=== PATIENT | female | born 1965 | race Caucasian/White ===

== ENCOUNTER 2016-11-16 11:01 | Outpatient (CLI) | payer OTHER | END 2016-11-16 11:02 | disposition home or self-care (01) | DX: N60.01 Solitary cyst of right breast (principal) ==

== ENCOUNTER 2018-01-14 13:30 | Outpatient (CLI) | payer OTHER | END 2018-01-14 13:31 | disposition home or self-care (01) | LOC: LAB.R 13:30 | PROVIDERS: ATTEND Family Medicine | DX: L72.3 Sebaceous cyst (principal) | CPT/HCPCS: 87070; 87205 ==

== ENCOUNTER 2018-02-13 09:11 | Outpatient (CLI) | payer OTHER ==
--- NOTE | 2018-02-14 14:59 | Mammography Report ---
Procedure Date: 02/13/2018 Accession Number: [id number] / [id number] Procedure: MGN - Screening Mammo Dig Bilat CPT Code: FULL RESULT: EXAM: Screening Mammo Dig Bilat DATE: 02/13/2018 9:34 AM CLINICAL HISTORY: 52-year-old female reports a cyst in her right breast and significant weight loss of 85 pounds since her last mammogram mammogram. TECHNIQUE: Bilateral CC and MLO views were obtained. COMPARISON: 11/16/2016, 10/26/2015, 11/08/2014, 09/10/2013. FINDINGS: The breasts demonstrate scattered fibroglandular densities bilaterally. There is a well-circumscribed round hyperdense right breast mass, decreased in size compared to 2017 and compatible with the patient's preoperative cyst, typically benign. Typically benign coarse calcifications are seen in the right breast. Typically benign coarse calcifications are seen in the left breast. No suspicious masses, clustered microcalcifications, or regions of architectural distortion are identified. IMPRESSION: Benign findings RECOMMENDATION: Routine annual screening unless otherwise clinically indicated. BIRADS CATEGORY 2: Benign findings STANDARD QUALIFYING STATEMENTS: 1. This examination was reviewed with the aid of Computer-Aided Detection (CAD). 2. A negative or benign imaging report should not delay biopsy if clinically suspicious findings are present. Consider surgical consultation if warrented. More than 5% of cancers are not identified by imaging. 3. Dense breasts may obscure an underlying neoplasm.
== END 2018-02-13 09:12 | disposition home or self-care (01) ==
LOC: DI.N 09:11
PROVIDERS: ATTEND Family Medicine
DX: Z12.31 Encounter for screening mammogram for malignant neoplasm of breast (principal)
CPT/HCPCS: 77067

== ENCOUNTER 2019-03-09 10:46 | Outpatient (CLI) | payer BC ==
--- NOTE | 2019-03-09 11:46 | Mammography Report ---
Reason: SCREENING MAMMO Procedure Date: 03/09/2019 Accession Number: [id number] / [id number] Procedure: SIENA - Screening Mammo w/Tapan CPT Code: FULL RESULT: EXAM: Screening Mammo w/Tapan DATE: 03/09/2019 11:34 AM CLINICAL HISTORY: Routine screening. No reported personal or family history of breast cancer. TECHNIQUE: (B) - Bilateral CC and MLO views were obtained. COMPARISON: 02/13/2018 through 11/08/2014 PARENCHYMAL PATTERN: (A) - The breasts demonstrate scattered fibroglandular densities bilaterally. FINDINGS: Bilateral breasts: There are no suspicious masses, calcifications, or areas of distortion. IMPRESSION: Negative examination. BI-RADS category 1. RECOMMENDATION: (ANNUAL) - Recommend routine annual screening mammography. BI-RADS CATEGORY: (1) - Negative. STANDARD QUALIFYING STATEMENTS: 1. This examination was not reviewed with the aid of Computer-Aided Detection (CAD). 2. A negative or benign imaging report should not preclude biopsy if clinically suspicious findings are present. 3. Dense breasts may obscure an underlying neoplasm. 4. This examination was reviewed with the aid of 3D breast imaging (tomosynthesis).
== END 2019-03-09 10:47 | disposition home or self-care (01) ==
LOC: DI 10:46
DX: Z12.31 Encounter for screening mammogram for malignant neoplasm of breast (principal)
CPT/HCPCS: 77063; 77067

== ENCOUNTER 2019-05-19 21:01 | Emergency (ER) | payer BC ==
[2019-05-19 21:28] LABS: BASOPHILS % (AUTO) 0.5 %; EOSINOPHILS # (AUTO) 0.2 10^3/uL (0.0-0.7); EOSINOPHILS % (AUTO) 2.5 %; HGB - HEMOGLOBIN 12.3 g/dL (12.0-16.0); LYMPHOCYTES # (AUTO) 2.8 10^3/uL (1.5-3.5); LYMPHOCYTES % (AUTO) 46.5 %; MEAN CORPUSCULAR HEMOGLOBIN 28.3 pg (27.0-31.0); MEAN CORPUSCULAR HGB CONC 31.3 g/dL (32.0-36.0); MEAN CORPUSCULAR VOLUME 90.3 fL (81.0-99.0); MEAN PLATELET VOLUME 9.3 fL (7.9-10.8); MONOCYTES # (AUTO) 0.5 10^3/uL (0.0-1.0); MONOCYTES % (AUTO) 7.5 %; NEUTROPHILS # (AUTO) 2.6 10^3/uL (1.5-6.6); NEUTROPHILS % (AUTO) 42.7 %; PLT - PLATELET COUNT 288 10^3/uL (130-450); RED BLOOD COUNT 4.35 10^6/uL (4.20-5.40); RED CELL DISTRIBUTION WIDTH 12.6 % (12.0-15.0)
[2019-05-19] MEDS ORDERED: SODIUM CHLORIDE 0.9% 1,000 ML IV ONE (21:35)
[2019-05-19] MEDS ORDERED: LIDOCAINE VISCOUS 2% 15 ML UDC MM STA (21:35)
[2019-05-19] MEDS ORDERED: MAG HYDROX/AL HYDROX/SIMETH 30 ML UDC PO STA (21:35)
--- NOTE | 2019-05-19 21:35 | ED Physician Documentation ---
PD HPI ABD PAIN - Stated complaint Stated Complaint: ABD PX/NAUSEA - Chief complaint Chief Complaint: Abd Pain - History obtained from History obtained from: Patient - History of Present Illness Timing - onset: How many hours ago (2) Timing - duration: Hours (2) Timing - details: Abrupt onset Pain level now: 8 Quality: Cramping Location: RLQ, LLQ Associated symptoms: No: Fever, Nausea, Vomiting, Diarrhea, Constipation, Dysuria, Hematuria, Dizzy, Near syncope / syncope Similar symptoms before: No diagnosis Recently seen: Not recently seen - Additional information Additional information: Is a 53-year-old woman who presents with complaints that she is having intense cramping in her lower abdomen that started approximately 2 hours prior to presentation 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 She had eaten a meal replacement bar about 30 minutes prior at the onset of the symptoms with an artificial sweetener that has given her very similar symptoms as this in the past. She tried taking some Gas-X and Tums. She also drink some Sprite and that did not do anything to alleviate her symptoms. She has been belching and that seems to provide some relief but she has not had a bowel movement. There is of constant low level cramps but the pain is waxing and waning up to an 8 out of 10 at its most severe. She had a small salad and leftover crab cakes for lunch about 1230 and drink a smoothie for dinner. She has had prior gastric sleeve surgery about 4 years ago as well as cholecystectomy, hysterectomy and oophorectomy x1. She is not sure which side is remaining. She denies any nausea or vomiting although about a week and 1/2 to 2 weeks ago she was having quite a bit of vomiting and vomited 2 days ago as well. She related this to taking her Vitamins all at one time and she is started spacing them out. She denies fever. Review of Systems Constitutional: denies: Fever Nose: denies: Rhinorrhea / runny nose Throat: denies: Sore throat Cardiac: denies: Palpitations Respiratory: denies: Dyspnea, Cough GI: reports: Abdominal Pain. denies: Nausea, Vomiting, Diarrhea : denies: Dysuria, Frequency, Hematuria Musculoskeletal: denies: Back pain Neurologic: denies: Syncope PD PAST MEDICAL HISTORY - Allergies Allergies/Adverse Reactions: Allergies Allergy/AdvReac Type Severity Reaction Status Date / Time Penicillins Allergy Rash Verified 05/19/19 21:09 Sulfa (Sulfonamide Allergy Rash Verified 05/19/19 21:10 Antibiotics) PD ED PE NORMAL - Vitals Vital signs reviewed: Yes - General General: Alert and oriented X 3, No acute distress, Well developed/nourished, Other (She was standing up at the side of the bed leaning over it when I entered because of the pain.) - HEENT HEENT: Atraumatic, PERRL, Moist mucous membranes - Neck Neck: No adenopathy - Cardiac Cardiac: RRR, No murmur, Strong equal pulses - Respiratory Respiratory: No respiratory distress, Clear bilaterally - Abdomen Abdomen: Soft, Non tender, Other (Hypoactive bowel tones) - Derm Derm: Normal color, Warm and dry, No rash - Extremities Extremities: No edema - Neuro Neuro: Alert and oriented X 3, No motor deficit, No sensory deficit, Normal speech - Psych Psych: Normal mood, Normal affect Results - Vitals Vitals: Vital Signs - 24 hr 05/19/19 21:07 Temperature 36.8 C Heart Rate 74 Respiratory 18 Rate Blood Pressure 137/96 H O2 Saturation 98 Oxygen O2 Source Room air - Labs Labs: Laboratory Tests 05/19/19 05/19/19 05/19/19 21:19 21:19 21:55 WBC 6.0 RBC 4.35 Hgb 12.3 Hct 39.3 MCV 90.3 MCH 28.3 MCHC 31.3 L RDW 12.6 Plt Count 288 MPV 9.3 Neut # (Auto) 2.6 Lymph # (Auto) 2.8 [place] # (Auto) 0.5 Eos # (Auto) 0.2 Baso # (Auto) 0.0 Absolute Nucleated RBC 0.00 Nucleated RBC % 0.0 Sodium 142 Potassium 3.8 Chloride 104 Carbon Dioxide 30 Anion Gap 8.0 BUN 16 Creatinine 0.7 Estimated GFR (MDRD) 88 L Glucose 108 H Lactic Acid 0.7 Calcium 9.5 Total Bilirubin 0.8 AST 20 ALT 25 Alkaline Phosphatase 51 Total Protein 7.3 Albumin 4.6 Globulin 2.7 Albumin/Globulin Ratio 1.7 Lipase 36 Urine Color Urine Clarity Urine pH Ur Specific [place] Urine Protein Urine Glucose (UA) Urine Ketones Urine Occult Blood Urine Nitrite Urine Bilirubin Urine Urobilinogen Ur Leukocyte Esterase Ur Microscopic Review Urine Culture Comments 05/19/19 21:55 WBC RBC Hgb Hct MCV MCH MCHC RDW Plt Count MPV Neut # (Auto) Lymph # (Auto) [place] # (Auto) Eos # (Auto) Baso # (Auto) Absolute Nucleated RBC Nucleated RBC % Sodium Potassium Chloride Carbon Dioxide Anion Gap BUN Creatinine Estimated GFR (MDRD) Glucose Lactic Acid Calcium Total Bilirubin AST ALT Alkaline Phosphatase Total Protein Albumin Globulin Albumin/Globulin Ratio Lipase Urine Color YELLOW Urine Clarity CLEAR Urine pH 7.0 Ur Specific [place] <=1.005 Urine Protein NEGATIVE Urine Glucose (UA) NEGATIVE Urine Ketones NEGATIVE Urine Occult Blood NEGATIVE Urine Nitrite NEGATIVE Urine Bilirubin NEGATIVE Urine Urobilinogen 0.2 (NORMAL) Ur Leukocyte Esterase NEGATIVE Ur Microscopic Review NOT INDICATED Urine Culture Comments NOT INDICATED PD MEDICAL DECISION MAKING - ED course Complexity details: reviewed results, re-evaluated patient, d/w patient ED course: Labs are normal. Urinalysis is negative. She had a liter of saline and a GI cocktail with viscous lidocaine and Maalox as well as p.o. Bentyl. On reevaluation she said her pain was completely resolved. She has had this issue before with this artificial sweetener and knows to avoid it in the future to prevent these symptoms from recurring. She feels comfortable being discharged. Departure - Departure Disposition: 01 Home, Self Care Clinical Impression: Abdominal cramping Condition: Good Instructions: Abdominal Pain Follow-Up: Ramon Barbour DO [Primary Care Provider] - Comments: Avoid foods that contain the sweeteners that cause you to have pain. [place] diet for the next 12 to 24 hours.
[2019-05-19] MEDS ORDERED: DICYCLOMINE 10 MG CAPSULE PO STA (21:36)
[2019-05-19 21:58] LABS: ALBUMIN 4.6 g/dL (3.2-5.5); ALBUMIN/GLOBULIN RATIO 1.7 (1.0-2.2); BILIRUBIN,TOTAL 0.8 mg/dL (0.2-1.0); CALCIUM 9.5 mg/dL (8.5-10.3); CREATININE 0.7 mg/dL (0.4-1.0); TOTAL PROTEIN 7.3 g/dL (6.7-8.2)
[2019-05-19 22:49] LABS: BILIRUBIN,URINE NEGATIVE (NEGATIVE); GLUCOSE, URINE (UA) NEGATIVE (NEGATIVE); KETONES,URINE (UA) NEGATIVE (NEGATIVE); LEUKOCYTE ESTERASE, URINE NEGATIVE (NEGATIVE); NITRITE,URINE NEGATIVE (NEGATIVE); OCCULT BLOOD,URINE NEGATIVE (NEGATIVE); PROTEIN,URINE NEGATIVE (NEGATIVE); UROBILINOGEN,URINE 0.2 (NORMAL) E.U./dL (NORMAL)
[2019-05-19 22:53] LABS: CLARITY,URINE CLEAR (CLEAR)
[2019-05-19 23:09] VITALS: BP 132/68
== END 2019-05-19 23:11 | disposition home or self-care (01) ==
LOC: ED 21:01
DX: R10.31 Right lower quadrant pain (principal); R10.32 Left lower quadrant pain
CPT/HCPCS: 36415; 80053; 81003; 83605; 83690; 85025; 96360; 99282; 99284; A9270; 81001; 81025; 87086

== ENCOUNTER 2019-05-22 13:39 | Outpatient (CLI) | payer BC ==
[2019-05-22] MEDS ORDERED: IOVERSOL 320 50 ML VIAL ONE (13:55)
[2019-05-22] MEDS ORDERED: IOVERSOL 320 100 ML VIAL IVP ONE ×2 (13:55→14:41)
[2019-05-22] MEDS ORDERED: IOVERSOL 320 50 ML VIAL PO ONE (14:43)
--- NOTE | 2019-05-22 15:23 | CT Report ---
Reason: LLQ ABD PAIN Procedure Date: 05/22/2019 Accession Number: [id number] / [id number] Procedure: CT - Abdomen/Pelvis W CPT Code: Final Report FULL RESULT: EXAM: CT ABDOMEN AND PELVIS EXAM DATE: 05/22/2019 02:50 PM. CLINICAL HISTORY: LLQ ABD PAIN. COMPARISONS: None. TECHNIQUE: Routine helical CT imaging was performed through the abdomen and pelvis. IV contrast: OPTI 320 90ML. Enteric contrast: No. Reconstructions: Coronal and sagittal. In accordance with CT protocol optimization, one or more of the following dose reduction techniques were utilized for this exam: automated exposure control, adjustment of mA and/or KV based on patient size, or use of iterative reconstructive technique. FINDINGS: Lung Bases: Unremarkable. A small hiatal hernia noted.. Liver: Normal. No masses. Gallbladder/Bile Ducts: Status post cholecystectomy Spleen: Normal. Pancreas: Normal. Adrenal Glands: Normal. Kidneys: Subcentimeter hypodense lesion in superior pole of right kidney is too small to categorize. No masses or hydronephrosis. Peritoneal Cavity/Bowel: Normal. No free fluid, free air or adenopathy. No masses or acute inflammatory process. Appendix not visualized in right lower quadrant, however there is no inflammation. Few colonic diverticula in sigmoid colon however no diverticulitis. Pelvic Organs: Status post hysterectomy. The bladder and visualized pelvic organs are within normal limits. Vasculature: No aneurysms or other significant abnormality. Bones: No significant abnormality. Other: None. IMPRESSION: No acute abdominal pathology. Few colonic diverticula in sigmoid colon however no diverticulitis. Status post cholecystectomy. RADIA The call report notification system was initiated by Dr. Keyona Benjamin at 03:21 PM on 05/22/2019.
== END 2019-05-22 13:40 | disposition home or self-care (01) ==
LOC: DI 13:39
PROVIDERS: ATTEND Family Medicine
DX: K57.30 Diverticulosis of large intestine without perforation or abscess without bleeding (principal); Z90.49 Acquired absence of other specified parts of digestive tract; R10.32 Left lower quadrant pain
CPT/HCPCS: 74177

== ENCOUNTER 2019-07-11 09:27 | Inpatient (IN) | payer BC ==
[2019-07-11 10:01] LABS: BILIRUBIN,URINE NEGATIVE (NEGATIVE); GLUCOSE, URINE (UA) NEGATIVE (NEGATIVE); KETONES,URINE (UA) NEGATIVE (NEGATIVE); LEUKOCYTE ESTERASE, URINE NEGATIVE (NEGATIVE); NITRITE,URINE NEGATIVE (NEGATIVE); OCCULT BLOOD,URINE SMALL (NEGATIVE); PROTEIN,URINE NEGATIVE (NEGATIVE); UROBILINOGEN,URINE 0.2 (NORMAL) E.U./dL (NORMAL)
[2019-07-11 10:08] LABS: CLARITY,URINE CLEAR (CLEAR); RBC,URINE 0-5 /HPF (0-5); SQUAMOUS EPITHELIAL CELL,UR RARE Squamous (<= Few)
[2019-07-11 10:09] LABS: BACTERIA,URINE None Seen /HPF (None Seen)
[2019-07-11 10:10] LABS: HCG UR QUAL NEGATIVE
[2019-07-11 10:16] LABS: BASOPHILS % (AUTO) 0.2 %; EOSINOPHILS # (AUTO) 0.1 10^3/uL (0.0-0.7); EOSINOPHILS % (AUTO) 1.4 %; HGB - HEMOGLOBIN 13.3 g/dL (12.0-16.0); LYMPHOCYTES # (AUTO) 1.7 10^3/uL (1.5-3.5); LYMPHOCYTES % (AUTO) 29.3 %; MEAN CORPUSCULAR HEMOGLOBIN 29.5 pg (27.0-31.0); MEAN CORPUSCULAR HGB CONC 32.8 g/dL (32.0-36.0); MONOCYTES # (AUTO) 0.5 10^3/uL (0.0-1.0); MONOCYTES % (AUTO) 7.8 %; NEUTROPHILS # (AUTO) 3.5 10^3/uL (1.5-6.6); PLT - PLATELET COUNT 315 10^3/uL (130-450); RED BLOOD COUNT 4.51 10^6/uL (4.20-5.40); RED CELL DISTRIBUTION WIDTH 12.5 % (12.0-15.0); WHITE BLOOD COUNT 5.7 x10^3/uL (4.8-10.8)
[2019-07-11 10:24] LABS: ALBUMIN 4.5 g/dL (3.2-5.5); ALBUMIN/GLOBULIN RATIO 1.7 (1.0-2.2); BILIRUBIN,TOTAL 0.4 mg/dL (0.2-1.0); CALCIUM 9.1 mg/dL (8.5-10.3); CREATININE 0.7 mg/dL (0.4-1.0); TOTAL PROTEIN 7.1 g/dL (6.7-8.2)
[2019-07-11] MEDS ORDERED: ROCURONIUM 50 MG/5 ML VIAL IVP ONE (10:31)
[2019-07-11] MEDS ORDERED: KETOROLAC 30 MG/ML VIAL IVP ONE (10:31)
[2019-07-11] MEDS ORDERED: LIDOCAINE 2% 10 ML MDV SUBQ ONE (10:31)
[2019-07-11] MEDS ORDERED: DEXAMETHASONE 4 MG/ML VIAL IVP ONE (10:31)
[2019-07-11] MEDS ORDERED: GLYCOPYRROLATE 1 MG/5 ML VIAL IVP ONE (10:31)
[2019-07-11] MEDS ORDERED: ONDANSETRON 4 MG/2 ML VIAL IVP ONE (10:31)
[2019-07-11] MEDS ORDERED: PROPOFOL 200 MG/20 ML VIAL IVP ONE (10:31)
[2019-07-11] MEDS ORDERED: MIDAZOLAM 2 MG/2 ML VIAL IVP ONE (10:31)
[2019-07-11] MEDS ORDERED: NEOSTIGMINE 1 MG/1 ML 10 ML MDV IVP ONE (10:31)
[2019-07-11] MEDS ORDERED: MAG HYDROX/AL HYDROX/SIMETH 30 ML UDC PO STA ×2 (11:02→11:28)
[2019-07-11] MEDS ORDERED: LIDOCAINE VISCOUS 2% 15 ML UDC MM STA ×2 (11:02→11:28)
[2019-07-11] MEDS ORDERED: PANTOPRAZOLE 40 MG VIAL IVP STA (11:28)
[2019-07-11] MEDS ORDERED: SUCRALFATE 1 GM/10 ML UDC PO STA (11:28)
[2019-07-11] MEDS ORDERED: IOVERSOL 320 100 ML VIAL IVP ONE ×2 (11:33→12:10)
--- NOTE | 2019-07-11 12:42 | CT Report ---
Reason: epigastric pain vomiting no flatus Procedure Date: 07/11/2019 Accession Number: [id number] / [id number] Procedure: CT - Abdomen/Pelvis W CPT Code: Addended Final Report FULL RESULT: EXAM: CT ABDOMEN AND PELVIS EXAM DATE: 07/11/2019 12:08 PM. CLINICAL HISTORY: Epigastric pain. COMPARISONS: ABDOMEN/PELVIS W/ 05/22/2019 2:46 PM. TECHNIQUE: Routine helical CT imaging was performed through the abdomen and pelvis. IV contrast: 100 mL Optiray 320. Enteric contrast: No. Reconstructions: Coronal and sagittal. In accordance with CT protocol optimization, one or more of the following dose reduction techniques were utilized for this exam: automated exposure control, adjustment of mA and/or KV based on patient size, or use of iterative reconstructive technique. FINDINGS: Lung Bases: Mild hiatal hernia is seen. Liver: The liver demonstrates a few scattered tiny subcentimeter low-density foci, technically too small to further characterize and indeterminant but probable tiny cysts. Gallbladder/Bile Ducts: Cholecystectomy changes are seen. There is no biliary dilation. Spleen: Normal. Pancreas: Normal. Adrenal Glands: Normal. Kidneys: Simple 1.7 cm cyst in the upper pole is seen. There is no nephrolithiasis or hydronephrosis. Peritoneal Cavity/Bowel: There are postoperative changes related to the sleeve gastrectomy, grossly intact. The bowel loops demonstrate no appreciable dilation to suggest obstruction or ileus. There is unusual course of the transverse colon extending in a posterior peritoneal/retroperitoneal course (image 32/3 and image 36/6) suggesting potential internal hernia. There is mild fat stranding and edema associated with the bowel loops and mesentery. No pneumatosis. Minimal free fluid is seen in the mesentery. There is no free air. Pelvic Organs: Normal. The bladder and visualized pelvic organs are within normal limits. Vasculature: No aneurysms or other significant abnormality. Bones: No significant abnormality. Other: None. IMPRESSION: 1. Mild inflammatory changes and edema in the posterior mesentery with unusual course of the transverse colon seen in the posterior peritoneal/retroperitoneal space concerning for internal hernia. No dilated bowel loops to suggest obstruction at this time. Consider surgical consultation. 2. Status post sleeve gastrectomy with mild hiatal hernia. [facility] ADDENDUM: 07/11/19 16:[address] Davila. Normal lie of the transverse colon. Abnormal course of the distal small bowel and proximal colon with the cecum located in the anterior left upper quadrant there are associated areas of colon wall thickening and luminal narrowing with adjacent inflammatory fat stranding and trace fluid. Findings are suspicious for internal hernia.
--- NOTE | 2019-07-11 12:53 | ED Physician Documentation ---
PD HPI ABD PAIN - Stated complaint Stated Complaint: ABD PX - Chief complaint Chief Complaint: Abd Pain - History obtained from History obtained from: Patient, Family - History of Present Illness Timing - onset: Enter time (2300), Last night Timing - duration: Hours Timing - details: Abrupt onset, Still present, Waxing and waning Quality: Sharp, Pain Location: Epigastric Radiation: Upper back Improved by: Laying still, Vomiting Worsened by: Eating, Position, Palpation Associated symptoms: Nausea, Vomiting Similar symptoms before: Diagnosis (gastritis) Recently seen: Clinic - Additional information Additional information: 54-year-old female who is status post gastric sleeve has developed acute ep igastric abdominal pain radiating to her back. She is had this previously she has some improvement with a GI cocktail previously she is not on medications for acid reduction and she has had her gallbladder out previously. She is concerned today because she has not passed any flatus and she is worried about obstruction. She does indicate that she drinks 2 to 3 glasses of wine daily and she did take some ibuprofen yesterday morning. Review of Systems Constitutional: denies: Fever Eyes: denies: Decreased vision Ears: denies: Ear pain Nose: denies: Rhinorrhea / runny nose, Congestion Throat: denies: Sore throat Cardiac: denies: Chest pain / pressure, Palpitations Respiratory: denies: Dyspnea, Cough GI: reports: Abdominal Pain, Nausea, Vomiting : denies: Dysuria, Frequency Skin: denies: Rash Musculoskeletal: denies: Neck pain, Back pain, Extremity pain PD PAST MEDICAL HISTORY - Past Medical History Cardiovascular: None Respiratory: None Neuro: None Endocrine/Autoimmune: None GI: None [facility]: None : None HEENT: None Psych: None Musculoskeletal: None Derm: None - Past Surgical History Past Surgical History: No - Present Medications Home Medications: Ambulatory Orders Medication Instructions Recorded Confirmed Fluoxetine HCl 60 mg PO DAILY 07/11/19 07/11/19 - Allergies Allergies/Adverse Reactions: Allergies Allergy/AdvReac Type Severity Reaction Status Date / Time Penicillins Allergy Rash Verified 07/11/19 09:42 Sulfa (Sulfonamide Allergy Rash Verified 07/11/19 09:42 Antibiotics) - Social History Does the pt smoke?: No Smoking Status: Never smoker Does the pt drink ETOH?: No Does the pt have substance abuse?: No - Immunizations Immunizations are current?: Yes - POLST Patient has POLST: No PD ED PE NORMAL - Vitals Vital signs reviewed: Yes (hypertensive ) - General General: Well developed/nourished, Other (appears to be in pain with corruator tone and flat affect. 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, No motor deficit, No sensory deficit, Normal speech Eye Opening: Spontaneous Motor: Obeys Commands Verbal: Oriented GCS Score: 15 - Psych Psych: Normal mood, Other (flat affect) Results - Vitals Vitals: Vital Signs - 24 hr 07/11/19 07/11/19 07/11/19 09:37 11:25 14:52 Temperature 37.1 C 36.7 C 36.8 C Heart Rate 66 68 74 Respiratory 20 12 12 Rate Blood Pressure 134/86 H 138/92 H 135/72 H O2 Saturation 100 98 98 Oxygen O2 Source Room air - Labs Labs: Laboratory Tests 07/11/19 07/11/19 07/11/19 09:50 10:00 10:00 WBC 5.7 RBC 4.51 Hgb 13.3 Hct 40.6 MCV 90.0 MCH 29.5 MCHC 32.8 RDW 12.5 Plt Count 315 MPV 9.0 Neut # (Auto) 3.5 Lymph # (Auto) 1.7 [place] # (Auto) 0.5 Eos # (Auto) 0.1 Baso # (Auto) 0.0 Absolute Nucleated RBC 0.00 Nucleated RBC % 0.0 Sodium 141 Potassium 3.6 Chloride 102 Carbon Dioxide 29 Anion Gap 10.0 BUN 16 Creatinine 0.7 Estimated GFR (MDRD) 87 L Glucose 101 H Lactic Acid Calcium 9.1 Total Bilirubin 0.4 AST 17 ALT 19 Alkaline Phosphatase 50 Total Protein 7.1 Albumin 4.5 Globulin 2.6 Albumin/Globulin Ratio 1.7 Lipase 29 Urine Color YELLOW Urine Clarity CLEAR Urine pH 7.0 Ur Specific [place] 1.015 Urine Protein NEGATIVE Urine Glucose (UA) NEGATIVE Urine Ketones NEGATIVE Urine Occult Blood SMALL H Urine Nitrite NEGATIVE Urine Bilirubin NEGATIVE Urine Urobilinogen 0.2 (NORMAL) Ur Leukocyte Esterase NEGATIVE Urine RBC 0-5 Urine WBC 0-3 Ur Squamous Epith Cells RARE Squamous Urine Bacteria None Seen Ur Microscopic Review INDICATED Urine Culture Comments NOT INDICATED Urine HCG, Qual NEGATIVE 07/11/19 14:36 WBC RBC Hgb Hct MCV MCH MCHC RDW Plt Count MPV Neut # (Auto) Lymph # (Auto) [place] # (Auto) Eos # (Auto) Baso # (Auto) Absolute Nucleated RBC Nucleated RBC % Sodium Potassium Chloride Carbon Dioxide Anion Gap BUN Creatinine Estimated GFR (MDRD) Glucose Lactic Acid 0.6 Calcium Total Bilirubin AST ALT Alkaline Phosphatase Total Protein Albumin Globulin Albumin/Globulin Ratio Lipase Urine Color Urine Clarity Urine pH Ur Specific [place] Urine Protein Urine Glucose (UA) Urine Ketones Urine Occult Blood Urine Nitrite Urine Bilirubin Urine Urobilinogen Ur Leukocyte Esterase Urine RBC Urine WBC Ur Squamous Epith Cells Urine Bacteria Ur Microscopic Review Urine Culture Comments Urine HCG, Qual - Rads (name of study) CT ab/pel w Radiology: Prelim report reviewed (Impression: 1. Mild inflammatory changes and edema in the posterior mesentery with unusual course of the transverse colon seen in the posterior peritoneal/retroperitoneal space concerning for internal hernia. No dilated bowel loops to suggest obstruction at this time consider surgical consultation. 2. Status post sleeve gastrectomy with mild hiatal hernia), EMP read indepedently, See rad report PD MEDICAL DECISION MAKING - ED course Complexity details: reviewed old records, reviewed results, re-evaluated patient, considered differential, d/w patient, d/w family ED course: 54-year-old female status post gastric sleeve placement who has epigastric abdominal pain. My initial impression for this lady was gastritis as she is risk factors with both alcohol and ibuprofen. She was administered a GI cocktail with viscous lidocaine and Mylanta with equivocal results a second GI cocktail was administered with Carafate in addition and she is given a dose of Protonix. She had minimal relief with this and a CT scan of the abdomen pelvis was obtained which demonstrates a potential for internal hernia. In the mean time her symptoms have improved and she has passed some flatus. Despite this the patient's symptoms persist. Her imaging studies are concerning for an internal hernia and she has only had a gastric sleeve procedure. We consulted the [facility] excellence at [facility] and I spoke with Dr. Christy the public information relations manager bariatric surgeon who indicated that her surgical procedure should not be the cause of this problem and referred me back to general surgery. Dr. Davila is consulted again in the case and comes to the ED evaluates the patient and her images. There appears to be a rotation on the mesentery and the cecum is in the LUQ. The patient is taken to the OR and she is given a dose of cefotan 2gm IV prior to going to the OR. Departure - Departure Disposition: 66 [facility] DC/Xfer Clinical Impression: Internal hernia, Abdominal cramping Condition: Stable Discharge Date/Time: 07/11/19 16:48
[2019-07-11] MEDS ORDERED: HYDROmorphone 1 MG/ML CARPUJECT IVP STA (14:58)
[2019-07-11] MEDS ORDERED: ONDANSETRON 4 MG/2 ML VIAL IVP STA (14:58)
[2019-07-11] MEDS ORDERED: CEFOTETAN DISODIUM 2 GM in SODIUM CHLORIDE 0.9% MINIBAG 100 ML IV STA (16:33)
--- NOTE | 2019-07-11 16:51 | CONSULTATION NOTE ---
Referring Provider Name of Referring Provider:: Dr. Rasmussen Consult Date: 07/11/19 Chief Complaint - Chief Complaint Chief Complaint: abd pain History of Present Illness - Admitted From Admitted From:: ER - History Obtained From Records Reviewed: yes History obtained from: pt, family Exam Limitations: none - History of Present Illness HPI Comment/Other: 54 yo female with 1 yr hx of intermittent epigastric and LUQ pain, nausea and retching, described as constant, steady with colicky exacerbations, with increasing frequency and severity. Episodes can last hours to days, exacerbated by eating but not by activity. Current episode began yesterday afternoon and has persisted resulting in ER evaluation today. Previous ER evaluation in May was neg including a neg CT abd/pelvis. Pt is s/p laparoscopic gastric bypass in [place] in 2016 and has lost 80+ lbs since the surgery. She is also s/p cholecystectomy and LAVH for benign disease. No hx PUD, no fever, no melena or hematochezia. She reports increasing sx of constipation over the past few months. Evaluation today includes nl CBC, CMP, lipase, lactate, UA. CT abd/pelvis was interpreted as showing evidence of an internal hernia through which the cecum has become trapped in the LUQ. Consultation by Dr. Rasmussen with a surgeon at a bariatric center in the [place] area suggested that the gastric sleeve procedure was not likely to cause an internal hernia and recommended general surgical evaluation and treatment as appropriate. History - Past Medical History Cardiovascular: reports: None Respiratory: reports: None Neuro: reports: None Endocrine/Autoimmune: reports: None GI: reports: None COMMUNITY ENGAGEMENT COORDINATOR: reports: None : reports: None HEENT: reports: None Psych: reports: Depression, Anxiety Musculoskeletal: reports: None Derm: reports: None MRSA Hx?: No - Past Surgical History General: reports: Cholecystectomy, Gastric surgery (gastric sleeve 2017), Hiatal hernia repair /COMMUNITY ENGAGEMENT COORDINATOR: reports: Hysterectomy (lavh for benign dz with retention of one ovary) - Family & Social History Living arrangement: At home Living Situation: With spouse/s.o. - Substance History Use: Uses substance without health or social issues: Alcohol (3-4 glasses wine 3-4 times/week) - POLST Patient has POLST: No Meds/Allgy - Home Medications Home Medications: Ambulatory Orders Medication Instructions Recorded Confirmed Fluoxetine HCl 60 mg PO DAILY 07/11/19 07/11/19 - Allergies Allergies/Adverse Reactions: Allergies Allergy/AdvReac Type Severity Reaction Status Date / Time Penicillins Allergy Rash Verified 07/11/19 09:42 Sulfa (Sulfonamide Allergy Rash Verified 07/11/19 09:42 Antibiotics) Review of Systems - Constitutional Constitutional: reports: Weight loss. denies: Fever, Chills - Gastrointestinal Gastrointestinal: reports: Abdominal pain, Constipation, Nausea, Poor appetite. denies: Diarrhea, Change in bowel habits, Rectal bleeding, Black stools, Bloody stools, Vomiting, Coffee grounds emesis, Reflux/heartburn, Bloating - Psychiatric Psychiatric: reports: Depression, Anxiety - Hematologic/Lymphatic Hematologic/Lymphatic: denies: Blood clots, Bleeding tendencies - All Other Systems All Other Systems: reports: Reviewed and negative (or covered in HPI/PMH) Exam - Vital Signs Reviewed Vital Signs: Yes Vital Signs: Vital Signs x48h Temp Pulse Resp BP Pulse Ox 07/11/19 16:35 74 18 138/79 H 98 07/11/19 14:52 36.8 C 74 12 135/72 H 98 07/11/19 11:25 36.7 C 68 12 138/92 H 98 07/11/19 09:37 37.1 C 66 20 134/86 H 100 - Physical Exam General Appearance: positive: Alert, Moderate distress (c/o abd pain) Eyes Bilateral: positive: Normal inspection, No scleral icterus ENT: positive: ENT inspection nml, Pharynx nml, No signs of dehydration Neck: positive: Nml inspection, No JVD. negative: Lymphadenopathy (R), Lymphadenopathy (L) Respiratory: positive: Chest non-tender, No respiratory distress, Breath sounds nml Cardiovascular: positive: Regular rate & rhythm, No murmur, No gallop Abdomen: positive: Nml bowel sounds, No distention, Tenderness (epigastric and LUQ without peritoneal signs or masses). negative: Guarding, Rebound, Hepatomegaly, Splenomegaly, Mass Back: positive: Nml inspection. negative: CVA tenderness (R), CVA tenderness (L) Skin: positive: No rash, Warm, Dry. negative: Cyanosis Extremities: positive: Nml appearance, No pedal edema. negative: Calf tenderness Neurologic/Psychiatric: positive: Oriented x3 Conclusion/Plan - Diagnosis Diagnosis: Acute abdomen with evidence of an internal hernia displacing/trapping the cecum in LUQ. Cecal volvulus is thought to be less likely. No evidence of ischemia/infarction or complete bowel obstruction at this time. Unclear if this process is related to prior surgical procedures. - Plan Plan: Exploratory laparotomy with definitive treatment based on the operative finding s, which might require bowel resection and/or ostomy. PAR conference with pt, and daughter all present, in detail, was held, all questions were answered, and consent obtained. The procedure will be scheduled to be performed today as soon as it can be arranged. Thanks, - Lab Results Fish Bones: 07/11/19 10:00 07/11/19 10:00
--- NOTE | 2019-07-11 17:18 | ANESTHESIA ---
Pre-Anesthesia VS, & Labs - Diagnosis Diagnosis Acute abdomen with evidence of an internal hernia displacing/trapping the cecum in LUQ. Cecal volvulus is thought to be less likely. No evidence of ischemia/infarction or complete bowel obstruction at this time. Unclear if this process is related to prior surgical procedur es. - Procedure exploratory laparotomy Vital Signs: Temp Pulse Resp BP Pulse Ox 36.8 C 74 18 138/79 H 98 07/11/19 14:52 07/11/19 16:35 07/11/19 16:35 07/11/19 16:35 07/11/19 16:35 Height 5 ft 8 in Weight (kg) 83.915 kg Body Mass Index 28.1 - NPO >8 hours - Is Patient ?: No - Lab Results Current Lab Results: Laboratory Tests 07/11/19 14:36: Lactic Acid 0.6 07/11/19 10:00: Sodium 141, Potassium 3.6, Chloride 102, Carbon Dioxide 29, Anion Gap 10.0, BUN 16, Creatinine 0.7, Estimated GFR (MDRD) 87 L, Glucose 101 H , Calcium 9.1, Total Bilirubin 0.4, AST 17, ALT 19, Alkaline Phosphatase 50, Total Protein 7.1, Albumin 4.5, Globulin 2.6, Albumin/Globulin Ratio 1.7, Lipase 29 07/11/19 10:00: WBC 5.7, RBC 4.51, Hgb 13.3, Hct 40.6, MCV 90.0, MCH 29.5, MCHC 32.8, RDW 12.5, Plt Count 315, MPV 9.0, Neut # (Auto) 3.5, Lymph # (Auto) 1.7, [place] # (Auto) 0.5, Eos # (Auto) 0.1, Baso # (Auto) 0.0, Absolute Nucleated RBC 0.00, Nucleated RBC % 0.0 Lab results reviewed: Yes Fish Bones: 07/11/19 10:00 07/11/19 10:00 Home Medications and Allergies Home Medications: Ambulatory Orders Fluoxetine HCl 60 mg PO DAILY 07/11/19 Fluoxetine HCl 60 mg PO DAILY 07/11/19 Allergies/Adverse Reactions: Allergies Allergy/AdvReac Type Severity Reaction Status Date / Time Penicillins Allergy Rash Verified 07/11/19 09:42 Sulfa (Sulfonamide Allergy Rash Verified 07/11/19 09:42 Antibiotics) Anes History & Medical History - Anesthetic History Anesthesia Complications: reports: No previous complications Family history of Anesthesia Complications: Denies Family history of Malignant Hyperthermia: Denies - Medical History Cardiovascular: reports: None Pulmonary: reports: None Gastrointestinal: reports: None Urinary: reports: None Neuro: reports: None Musculoskeletal: reports: None Endocrine/Autoimmune: reports: None Blood Disorders: reports: None Skin: reports: None Smoking Status: Never smoker - Surgical History General: Cholecystectomy, Gastric surgery (gastric sleeve 2017), Hiatal hernia repair Gynecologic: Hysterectomy (lavh for benign dz with retention of one ovary) Exam General: Alert, Oriented x3, Cooperative Dental: WNL Mouth Openin Fingerbreadth Neck Mobility: Normal Mallampati classification: II Thyromental Distance: 4-6 cm Respiratory: Lungs clear, Normal breath sounds Cardiovascular: Regular rate Neurological: Normal speech Mental/Cognitive Status: Alert/Oriented X3, Normal for patient Cognitive Status: Within normal limits Plan Anesthesia Type: General Consent for Procedure(s) Verified and Reviewed: Yes Code Status: Attempt Resuscitation ASA classification: 2-Mild systemic disease Is this case an emergency?: Yes
[2019-07-11] MEDS ORDERED: LACTATED RINGERS 1,000 ML IV ONE ×4 (17:23→17:52)
[2019-07-11] MEDS ORDERED: BUPIVACAINE 0.5% PF 30 ML VIAL ONE (18:27)
--- NOTE | 2019-07-11 18:57 | OPERATIVE REPORT ---
Operative Report - General Admit Date: 07/11/19 Procedure Date: 07/11/19 Planned Procedure: Exploratory laparotomy, possible bowel resection, possible ostomy Pre-Op Diagnosis: Internal hernia, volvulus Procedure Performed: Exploratory laparotomy, lysis of adhesive bands, partial right colectomy with ileocolostomy/primary anastomosis Post Op Diagnosis: Internal hernia, cecal volvulus - Procedure Note Primary Surgeon: Ronaldo Davila MD [facility] Anesthesia Provider: Apollo Toth CRNA Anesthesia Technique: General ET tube Pathology: cecum and terminal ileum IV Fluids (mL): 1,000 Estimated Blood Loss (mL): 25 Urine Output (mL): 100 Indications: recurrent epigastric and LUQ pain, abd CT scan concerning for internal hernia or cecal volvulus Findings: solitary adhesive band across the base of a volvulized cecum located in the LUQ Complications: none
[2019-07-11] MEDS: HYDROmorphone 1 MG/ML CARPUJECT ONE ×3 (19:13→19:22)
[2019-07-11] MEDS ORDERED: SCOPOLAMINE PATCH TOP ONE (19:16)
[2019-07-11] MEDS: ONDANSETRON 4 MG/2 ML VIAL IVP PRN (19:16)
[2019-07-11] MEDS: HYDROmorphone 0.5 MG/0.5 ML SYRINGE IVP PRN (19:30)
[2019-07-11] MEDS: fentaNYL 100 MCG/2 ML VIAL ONE ×2 (19:37→19:40)
[2019-07-11] MEDS: LACTATED RINGERS 1,000 ML IV SCH (20:07)
[2019-07-11] MEDS: ACETAMINOPHEN 1,000 MG/100 ML 100 ML IV SCH (20:08)
[2019-07-12] MEDS ORDERED: SODIUM CHLORIDE 0.9% MINIBAG 100 ML IV ONE (01:30)
[2019-07-12] MEDS: KETOROLAC 15 MG/ML VIAL IVP SCH ×4 (01:38→18:16)
[2019-07-12] MEDS: ACETAMINOPHEN 1,000 MG/100 ML 100 ML IV SCH ×4 (01:41→20:50)
[2019-07-12] MEDS: HYDROmorphone 0.5 MG/0.5 ML SYRINGE IVP PRN ×2 (04:39→09:51)
--- NOTE | 2019-07-12 06:20 | OPERATIVE REPORT ---
DATE OF SERVICE: 07/11/2019 Physician: Ronaldo Davila MD PREOPERATIVE DIAGNOSIS: Acute abdomen due to internal hernia and/or cecal volvulus. POSTOPERATIVE DIAGNOSIS: Internal hernia with cecal volvulus. PROCEDURE PERFORMED: Exploratory laparotomy, lysis of adhesions and partial right colectomy with azra woodrow ileocolonic anastomosis. ANESTHESIA: General endotracheal by Apollo Toth CRNA SURGEON: Ronaldo Davila MD ESTIMATED BLOOD LOSS: 25 mL. COMPLICATIONS: None. FINDINGS: Exploration revealed a markedly redundant and volvulized cecum located in the left upper q uadrant, beneath the splenic flexure of the colon. The base of the volvulized loop was trapped by a very dense adhesive band. The cecum itself was markedly dilated and hyperemic along with the adjacen t terminal ileum, but was viable. The remainder of the colon had a normal appearance, although was f ull of hard stool throughout. The stomach had a normal postoperative state following gastric sleeve procedure. Adhesions were present in the right upper quadrant from prior cholecystectomy. The visua lized portion of the liver appeared normal. The small bowel was otherwise within normal limits. The ligament of Treitz was in its normal location. The sigmoid colon was mildly redundant. INDICATIONS: The patient is a 54-year-old woman with a one-year history of intermittent epigastric a nd left upper quadrant pain, nausea and retching of unclear etiology. She has a history of a gastric sleeve procedure 2-1/2 years ago, prior cholecystectomy and hysterectomy. Evaluation in the emergen cy room included CT scanning which showed evidence of what was thought to be an internal hernia with the cecum located in the left upper quadrant. The patient was advised to undergo exploratory laparot elise and definitive treatment based on operative findings, in an attempt to alleviate her symptoms and prevent complete bowel obstruction or infarction. TECHNIQUE: After informed consent, the patient was taken to the operating room where she was placed under general endotracheal anesthesia. Preoperative preparation included application of sequential c amaury compression boots and administration 2 grams of cefotetan intravenously within an hour of the inc ision. Her abdomen was prepared with ChloraPrep solution and draped in the usual sterile fashion. A n upper midline incision was used to enter the peritoneal cavity. Hemostasis achieved with electroca utery, the LigaSure, 3-0 silk sutures and 2-0 Vicryl ties. Incision was carried down through the lay ers of abdominal wall until the peritoneum was identified and entered sharply. The abdomen was explo red with findings noted above. The adhesive band at the base of the volvulized cecal loop was clampe d, cut, and ligated with 2-0 Vicryl ties. The abdominal contents were carefully explored. Findings were as noted above. The volvulized segment was seen to be viable, and felt that it was important to resect the segment to prevent recurrent symptoms. Therefore, points of bowel division were chosen, immediately proximal to the location of the adhesive band, and the bowel was mobilized and divided at both terminal ileum and ascending colon with a BAUTISTA-75 stapler with a GI load. The mesentery was div ided with the LigaSure, and the volvulized segment of terminal ileum and cecum were sent to Pathology . A primary anastomosis was performed using a staple technique, aligning the antimesenteric border o f the terminal ileum with that of the ascending colon adjacent to the stapled ends. Openings were cr eated in the antimesenteric borders of each, and one limb of the BAUTISTA-75 stapler was placed in each sonia men and aligned and closed to approximate the antimesenteric border of both loops of bowel and then f ired, creating a common channel, which was inspected and seen to be hemostatic. The resulting common defect was closed with a TA-60 stapler, which also provided hemostasis. The resulting mesenteric de fect was reapproximated with interrupted 3-0 silk sutures. After hemostasis was assured and the anas tomosis seemed to be patent, viable and watertight without tension. The anastomosis was returned to the abdominal cavity, which was then copiously irrigated with sterile saline. Gowns, gloves, instrum ents were then changed. A closing tray was then used to close the midline wound, which was closed in layers using a doubled 0 PDS suture in a continuous fashion to close the midline fascia, followed by continuous 3-0 Vicryl for subcutaneous tissues, followed by skin romulo and a dry sterile dressing. Also, 30 mL of 0.5% Marcaine plain was infiltrated into the incisions to assist in postoperative an algesia. Anesthesia was terminated and patient was transferred to the recovery room in satisfactory condition. Instrument counts were correct x2. No drains were used. cc: Ramon Barbour DO TD: 07/11/2019 19:19
[2019-07-12 06:23] LABS: BASOPHILS % (AUTO) 0.1 %; HGB - HEMOGLOBIN 10.8 g/dL (12.0-16.0); LYMPHOCYTES # (AUTO) 0.8 10^3/uL (1.5-3.5); LYMPHOCYTES % (AUTO) 7.9 %; MEAN CORPUSCULAR HEMOGLOBIN 28.1 pg (27.0-31.0); MEAN CORPUSCULAR HGB CONC 31.4 g/dL (32.0-36.0); MEAN CORPUSCULAR VOLUME 89.6 fL (81.0-99.0); MEAN PLATELET VOLUME 9.2 fL (7.9-10.8); MONOCYTES # (AUTO) 0.7 10^3/uL (0.0-1.0); MONOCYTES % (AUTO) 7.3 %; NEUTROPHILS # (AUTO) 8.5 10^3/uL (1.5-6.6); NEUTROPHILS % (AUTO) 84.1 %; PLT - PLATELET COUNT 235 10^3/uL (130-450); RED BLOOD COUNT 3.84 10^6/uL (4.20-5.40); RED CELL DISTRIBUTION WIDTH 12.2 % (12.0-15.0); WHITE BLOOD COUNT 10.1 x10^3/uL (4.8-10.8)
[2019-07-12 06:39] LABS: ALBUMIN 3.5 g/dL (3.2-5.5); ALBUMIN/GLOBULIN RATIO 1.5 (1.0-2.2); BILIRUBIN,TOTAL 0.5 mg/dL (0.2-1.0); CALCIUM 8.7 mg/dL (8.5-10.3); CREATININE 0.7 mg/dL (0.4-1.0); TOTAL PROTEIN 5.8 g/dL (6.7-8.2)
[2019-07-12] MEDS: LACTATED RINGERS 1,000 ML IV SCH ×2 (09:51→11:56)
[2019-07-12] MEDS: ENOXAPARIN 40 MG/0.4 ML SYRINGE SUBQ SCH (09:51)
[2019-07-12] MEDS ORDERED: POLYETHYLENE GLYCOL 3350 17 GM PACKET PO PRN (10:37)
--- NOTE | 2019-07-12 10:40 | PROVIDER PROGRESS NOTE ---
Subjective - General Admit Date: 07/11/19 Procedure Date: 07/11/19 Post Op Days: 1 Procedure Performed: partial right colectomy for cecal volvulus - Review of Systems Wound/Incisions: positive: Dressing dry and intact General: positive: No symptoms Pulmonary: positive: No symptoms Cardiovascular: positive: No symptoms Gastrointestinal: positive: Abdominal pain (moderate incisional pain) Musculoskeletal: positive: No symptoms Objective - Patient Data Reviewed Vital Signs: Yes Vital Signs: Vital Signs x48h Temp Pulse Resp BP Pulse Ox 07/12/19 08:20 36.9 C 70 16 115/56 L 98 07/12/19 04:35 37.2 C 88 16 117/63 97 Weight: Weight 07/10/19 07/11/19 07/12/19 23:59 23:59 23:59 Weight (kg) 83 kg 83 kg Intake & Output: Intake and Output Totals x24h 07/10/19 07/11/19 07/12/19 23:59 23:59 23:59 Intake Total 200 1440 Balance 200 1440 - Lab Results Lab Results: 07/12/19 05:43 07/12/19 05:43 Other Lab Results: Lab Results x24hrs 07/12/19 07/12/19 07/11/19 Range/Units 05:43 05:43 14:36 WBC 10.1 (4.8-10.8) x10^3/uL RBC 3.84 L (4.20-5.40) 10^6/uL Hgb 10.8 L (12.0-16.0) g/dL Hct 34.4 L (37.0-47.0) % MCV 89.6 (81.0-99.0) fL MCH 28.1 (27.0-31.0) pg MCHC 31.4 L (32.0-36.0) g/dL RDW 12.2 (12.0-15.0) % Plt Count 235 (130-450) 10^3/uL MPV 9.2 (7.9-10.8) fL Neut # (Auto) 8.5 H (1.5-6.6) 10^3/uL Lymph # (Auto) 0.8 L (1.5-3.5) 10^3/uL [place] # (Auto) 0.7 (0.0-1.0) 10^3/uL Eos # (Auto) 0.0 (0.0-0.7) 10^3/uL Baso # (Auto) 0.0 (0.0-0.1) 10^3/uL Absolute Nucleated RBC 0.00 x10^3/uL Nucleated RBC % 0.0 /100WBC Sodium 136 (135-145) mmol/L Potassium 3.7 (3.5-5.0) mmol/L Chloride 100 L (101-111) mmol/L Carbon Dioxide 29 (21-32) mmol/L Anion Gap 7.0 (6-13) BUN 14 (6-20) mg/dL Creatinine 0.7 (0.4-1.0) mg/dL Estimated GFR (MDRD) 87 L (>89) Glucose 148 H (70-100) mg/dL Lactic Acid 0.6 (0.5-2.2) mmol/L Calcium 8.7 (8.5-10.3) mg/dL Total Bilirubin 0.5 (0.2-1.0) mg/dL AST 21 (10-42) IU/L ALT 17 (10-60) IU/L Alkaline Phosphatase 39 L (42-121) IU/L Total Protein 5.8 L (6.7-8.2) g/dL Albumin 3.5 (3.2-5.5) g/dL Globulin 2.3 (2.1-4.2) g/dL Albumin/Globulin Ratio 1.5 (1.0-2.2) - Current Medications Current Medications: Current Medications Generic Name Dose Route Start Last Admin Trade Name Barrie PRN Reason Stop Dose Admin Enoxaparin Sodium 40 mg 07/12/19 09:00 07/12/19 09:51 Lovenox SUBQ 40 mg DAILY POLO Administration Acetaminophen 100 mls @ 400 mls/hr 07/11/19 19:00 07/12/19 08:07 Ofirmev IV Infused Q6H POLO Infusion Ondansetron HCl 4 mg 07/11/19 19:00 07/11/19 19:16 Zofran Inj IVP 4 mg Q6HR PRN Administration Nausea / Vomiting - Physical Exam Wound/Incisions: positive: Dressing dry and intact General Appearance: positive: Alert, Moderate distress (c/o incisional pain with activity) Eyes Bilateral: positive: Normal inspection, Conjunctivae nml, No scleral icterus ENT: positive: ENT inspection nml, Pharynx nml, No signs of dehydration Neck: positive: Nml inspection, No JVD Respiratory: positive: Chest non-tender, No respiratory distress, Breath sounds nml Cardiovascular: positive: Regular rate & rhythm, No murmur, No gallop Abdomen: positive: No distention, Tenderness (minimal expected postop tenderness), Other (dressing dry/intact) Skin: positive: Color nml, No rash, Warm, Dry. negative: Cyanosis Extremities: positive: No pedal edema. negative: Calf tenderness Neurologic/Psychiatric: positive: Oriented x3 ABX Reporting Has patient been on IV antibiotics over the past 48 hours?: No Impression/Plan - Problem List Problem List: PO Day 1 s/p partial right colectomy for cecal volvulus; Plan: OOB, activity and diet as efrain; adjust analgesics to optimize pain management; see orders.
[2019-07-12] MEDS: FAMOTIDINE 20 MG TABLET PO SCH ×2 (11:43→20:57)
[2019-07-12] MEDS ORDERED: BENZOCAINE/MENTHOL LOZENGE MM PRN (13:08)
[2019-07-12] MEDS: oxyCODONE 5 MG TABLET PO PRN ×2 (13:19→19:08)
--- NOTE | 2019-07-12 15:36 | ANESTHESIA POST OP EVALUATION ---
Anesthesia Post Eval - Post Anesthesia Eval CV Function Including HR & BP: positive: Stable Pain Control: positive: Adequate (Patient rated pain 2/10. States incisional pain is not bad, but has refered shoulder pain that is uncomfortable. She has been up walking without difficulty.) Nausea & Vomiting: positive: Negative Mental Status: positive: Appropriate Anesthesia Complications: positive: None
[2019-07-13] MEDS: KETOROLAC 15 MG/ML VIAL IVP SCH ×2 (01:00→05:38)
[2019-07-13] MEDS: oxyCODONE 5 MG TABLET PO PRN (01:30)
[2019-07-13] MEDS: ACETAMINOPHEN 1,000 MG/100 ML 100 ML IV SCH (03:01)
[2019-07-13] MEDS: LACTATED RINGERS 1,000 ML IV SCH (05:38)
[2019-07-13 05:39] LABS: BASOPHILS % (AUTO) 0.3 %; EOSINOPHILS # (AUTO) 0.1 10^3/uL (0.0-0.7); EOSINOPHILS % (AUTO) 1.8 %; HGB - HEMOGLOBIN 9.1 g/dL (12.0-16.0); LYMPHOCYTES # (AUTO) 2.1 10^3/uL (1.5-3.5); LYMPHOCYTES % (AUTO) 33.7 %; MEAN CORPUSCULAR HEMOGLOBIN 28.9 pg (27.0-31.0); MEAN CORPUSCULAR HGB CONC 31.8 g/dL (32.0-36.0); MEAN CORPUSCULAR VOLUME 90.8 fL (81.0-99.0); MEAN PLATELET VOLUME 9.3 fL (7.9-10.8); MONOCYTES # (AUTO) 0.5 10^3/uL (0.0-1.0); MONOCYTES % (AUTO) 8.3 %; NEUTROPHILS # (AUTO) 3.4 10^3/uL (1.5-6.6); NEUTROPHILS % (AUTO) 55.6 %; PLT - PLATELET COUNT 197 10^3/uL (130-450); RED BLOOD COUNT 3.15 10^6/uL (4.20-5.40); RED CELL DISTRIBUTION WIDTH 12.5 % (12.0-15.0); WHITE BLOOD COUNT 6.1 x10^3/uL (4.8-10.8)
[2019-07-13 05:52] LABS: ALBUMIN 3.2 g/dL (3.2-5.5); ALBUMIN/GLOBULIN RATIO 1.5 (1.0-2.2); BILIRUBIN,TOTAL 0.6 mg/dL (0.2-1.0); CREATININE 0.7 mg/dL (0.4-1.0); TOTAL PROTEIN 5.3 g/dL (6.7-8.2)
[2019-07-13] MEDS: ACETAMINOPHEN 325 MG TABLET PO SCH ×4 (08:23→20:59)
[2019-07-13] MEDS: POLYETHYLENE GLYCOL 3350 17 GM PACKET PO SCH ×2 (08:23→08:25)
[2019-07-13] MEDS: DOCUSATE SODIUM 250 MG CAPSULE PO SCH (08:24)
[2019-07-13] MEDS: ENOXAPARIN 40 MG/0.4 ML SYRINGE SUBQ SCH (08:24)
[2019-07-13] MEDS: FAMOTIDINE 20 MG TABLET PO SCH ×2 (08:24→20:52)
[2019-07-13] MEDS: IBUPROFEN 600 MG TABLET PO SCH ×3 (11:16→23:51)
--- NOTE | 2019-07-13 13:16 | PROVIDER PROGRESS NOTE ---
Subjective - General Admit Date: 07/11/19 Procedure Date: 07/11/19 Post Op Days: 2 Procedure Performed: partial right colectomy for cecal volvulus - Review of Systems Wound/Incisions: positive: Dressing dry and intact General: positive: No symptoms Pulmonary: positive: No symptoms Cardiovascular: positive: No symptoms Gastrointestinal: positive: Abdominal pain ( incisional pain improved) - Other Other Information/Narrative: efrain full liquid diet well; no flatus or stool; voiding well. Objective - Patient Data Reviewed Vital Signs: Yes Vital Signs: Vital Signs x48h Temp Pulse Resp BP Pulse Ox 07/13/19 09:00 36.6 C 72 16 117/62 100 Weight: Weight 07/11/19 07/12/19 07/13/19 23:59 23:59 23:59 Weight (kg) 83 kg 83 kg Intake & Output: Intake and Output Totals x24h 07/11/19 07/12/19 07/13/19 23:59 23:59 23:59 Intake Total 200 2816 3145 Balance 200 2816 3145 - Lab Results Lab Results: 07/13/19 05:10 07/13/19 05:10 Other Lab Results: Lab Results x24hrs 07/13/19 07/13/19 Range/Units 05:10 05:10 WBC 6.1 (4.8-10.8) x10^3/uL RBC 3.15 L (4.20-5.40) 10^6/uL Hgb 9.1 L (12.0-16.0) g/dL Hct 28.6 L (37.0-47.0) % MCV 90.8 (81.0-99.0) fL MCH 28.9 (27.0-31.0) pg MCHC 31.8 L (32.0-36.0) g/dL RDW 12.5 (12.0-15.0) % Plt Count 197 (130-450) 10^3/uL MPV 9.3 (7.9-10.8) fL Neut # (Auto) 3.4 (1.5-6.6) 10^3/uL Lymph # (Auto) 2.1 (1.5-3.5) 10^3/uL [place] # (Auto) 0.5 (0.0-1.0) 10^3/uL Eos # (Auto) 0.1 (0.0-0.7) 10^3/uL Baso # (Auto) 0.0 (0.0-0.1) 10^3/uL Absolute Nucleated RBC 0.00 x10^3/uL Nucleated RBC % 0.0 /100WBC Sodium 134 L (135-145) mmol/L Potassium 3.8 (3.5-5.0) mmol/L Chloride 99 L (101-111) mmol/L Carbon Dioxide 30 (21-32) mmol/L Anion Gap 5.0 L (6-13) BUN 9 (6-20) mg/dL Creatinine 0.7 (0.4-1.0) mg/dL Estimated GFR (MDRD) 87 L (>89) Glucose 92 (70-100) mg/dL Calcium 8.0 L (8.5-10.3) mg/dL Total Bilirubin 0.6 (0.2-1.0) mg/dL AST 28 (10-42) IU/L ALT 24 (10-60) IU/L Alkaline Phosphatase 35 L (42-121) IU/L Total Protein 5.3 L (6.7-8.2) g/dL Albumin 3.2 (3.2-5.5) g/dL Globulin 2.1 (2.1-4.2) g/dL Albumin/Globulin Ratio 1.5 (1.0-2.2) - Current Medications Current Medications: Current Medications Generic Name Dose Route Start Last Admin Trade Name Geraldq PRN Reason Stop Dose Admin Acetaminophen 650 mg 07/13/19 09:00 07/13/19 08:23 Tylenol PO 650 mg Q4HR POLO Administration Docusate Sodium 250 - 500 mg 07/13/19 09:00 07/13/19 08:24 Colace 250mg Capsule PO 250 mg DAILY POLO Administration Enoxaparin Sodium 40 mg 07/12/19 09:00 07/13/19 08:24 Lovenox SUBQ 40 mg DAILY POLO Administration Famotidine 20 mg 07/12/19 11:00 07/13/19 08:24 Pepcid PO 20 mg BID POLO Administration Ibuprofen 600 mg 07/13/19 12:00 07/13/19 11:16 Motrin PO 600 mg Q6HR POLO Administration Ondansetron HCl 4 mg 07/11/19 19:00 07/11/19 19:16 Zofran Inj IVP 4 mg Q6HR PRN Administration Nausea / Vomiting Oxycodone HCl 5 mg 07/12/19 10:37 07/13/19 01:30 Roxicodone PO 5 mg Q4HR PRN Administration PAIN Polyethylene Glycol 17 gm 07/13/19 07:00 07/13/19 08:25 Miralax PO Not Given DAILY POLO Throat Lozenges 1 lozenge 07/12/19 13:08 07/12/19 13:19 Cepacol MM 1 lozenge Q2HR PRN Administration Throat pain - Physical Exam Wound/Incisions: positive: Dressing dry and intact, No drainage General Appearance: positive: No acute distress, Alert Eyes Bilateral: positive: No scleral icterus ENT: positive: Pharynx nml, No signs of dehydration Neck: positive: No JVD Respiratory: positive: Chest non-tender, No respiratory distress, Breath sounds nml Cardiovascular: positive: Regular rate & rhythm, No murmur, No gallop Abdomen: positive: No distention, Tenderness (minimal shruti incisional) Skin: positive: Color nml, No rash, Warm, Dry Extremities: positive: No pedal edema. negative: Calf tenderness Neurologic/Psychiatric: positive: Oriented x3 ABX Reporting Has patient been on IV antibiotics over the past 48 hours?: No Impression/Plan - Problem List Problem List: Doing well PO Day 2 s/p partial right colectomy for cecal volvulus Plan: advance diet and activity as efrain; po meds; home tomorrow if continues to improve.
[2019-07-13] MEDS: ONDANSETRON 4 MG/2 ML VIAL IVP PRN (17:18)
[2019-07-14] MEDS: ACETAMINOPHEN 325 MG TABLET PO SCH ×3 (01:20→08:08)
[2019-07-14 05:40] LABS: BASOPHILS % (AUTO) 0.4 %; EOSINOPHILS # (AUTO) 0.2 10^3/uL (0.0-0.7); EOSINOPHILS % (AUTO) 3.3 %; HGB - HEMOGLOBIN 9.3 g/dL (12.0-16.0); LYMPHOCYTES # (AUTO) 1.3 10^3/uL (1.5-3.5); LYMPHOCYTES % (AUTO) 24.2 %; MEAN CORPUSCULAR HGB CONC 31.6 g/dL (32.0-36.0); MEAN CORPUSCULAR VOLUME 91.6 fL (81.0-99.0); MEAN PLATELET VOLUME 9.7 fL (7.9-10.8); MONOCYTES # (AUTO) 0.5 10^3/uL (0.0-1.0); MONOCYTES % (AUTO) 9.9 %; NEUTROPHILS # (AUTO) 3.4 10^3/uL (1.5-6.6); NEUTROPHILS % (AUTO) 61.8 %; PLT - PLATELET COUNT 212 10^3/uL (130-450); RED BLOOD COUNT 3.21 10^6/uL (4.20-5.40); RED CELL DISTRIBUTION WIDTH 12.6 % (12.0-15.0); WHITE BLOOD COUNT 5.5 x10^3/uL (4.8-10.8)
[2019-07-14] MEDS: IBUPROFEN 600 MG TABLET PO SCH (05:40)
[2019-07-14 07:42] VITALS: BP 123/70
--- NOTE | 2019-07-14 07:44 | Discharge Plan ---
Discharge Plan Problem Reviewed?: Yes Disposition: Home, Self Care Condition: Good Diet: Regular (no raw veggies or nuts) Activity Restrictions: ambulation daily; no lifting more than 10 lbs for 2 weeks Shower Restrictions: Yes Driving Restrictions: Yes (no driving for 1 week) Weight Bearing: Full Weight Additional Instructions or Follow Up instructions: Follow up with Dr. Davila in 1 week. Call [phone] for an appointment. No Smoking: If you smoke, Please STOP! Call for help. Follow-up with: Ramon Barbour DO [Primary Care Provider] -
--- NOTE | 2019-07-14 07:47 | DISCHARGE SUMMARY ---
"Discharge Summary Admit Date: 07/11/19 Discharge Date: 07/14/19 Discharging Provider: Dr. Ronaldo Davila Primary Care Provider: Dr. 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 lysis of adhesive band, partial right colectomy with primary anastomosis. - HOSPITAL COURSE Hospital Course: Pt was taken to the OR on the day of admission where the above mentioned procedures were carried out without operative complications. Post operative course was uncomplicated and by the 3rd postoperative day pt was afebrile, with stable vs, tolerating a regular diet, ambulating, voiding well and moving her bowels without difficulty. Pain was well controlled with non narcotic analgesics. - ALLERGIES Allergies/Adverse Reactions: Allergies Allergy/AdvReac Type Severity Reaction Status Date / Time Penicillins Allergy Rash Verified 07/11/19 09:42 Sulfa (Sulfonamide Allergy Rash Verified 07/11/19 09:42 Antibiotics) - MEDICATIONS Home Medications: Ambulatory Orders Medication Instructions Recorded Confirmed Fluoxetine HCl 60 mg PO DAILY 07/11/19 07/11/19 Acetaminophen 650 mg PO Q6H PRN #30 tablet 07/14/19 Ibuprofen [Motrin] 600 mg PO Q6HR tablet 07/14/19 Polyethylene Glycol 3350 [Miralax] 17 gm PO DAILY packet 07/14/19 Home Medications Other | Comments: Iburprofen 600 mg every 6 hours as needed for pain acetaminophen 650 mg every 6 hours as needed for pain Miralax 17 g daily as needed for constipation - PHYSICAL EXAM AT DISCHARGE General Appearance: positive: No acute distress, Alert Eyes Bilateral: positive: Normal inspection, No scleral icterus ENT: positive: ENT inspection nml, Pharynx nml, No signs of dehydration Neck: positive: No JVD Respiratory: positive: Chest non-tender, No respiratory distress, Breath sounds nml Cardiovascular: positive: Regular rate & rhythm, No murmur, No gallop Abdomen: positive: Non-tender, No distention, Other (dressing dry/intact) Skin: positive: Color nml, No rash, Warm, Dry. negative: Cyanosis Extremities: positive: No pedal edema. negative: Calf tenderness Neurologic/Psychiatric: positive: Oriented x3 - LABS Result Diagrams: 07/14/19 05:21 07/13/19 05:10 - FOLLOW UP Follow Up: Dr. Davila and Dr. Barbour in 1 week. - TIME SPENT Time Spent in Discharge (Minutes): 30"
[2019-07-14] MEDS: ENOXAPARIN 40 MG/0.4 ML SYRINGE SUBQ SCH (08:07)
[2019-07-14] MEDS: POLYETHYLENE GLYCOL 3350 17 GM PACKET PO SCH (08:08)
[2019-07-14] MEDS: DOCUSATE SODIUM 250 MG CAPSULE PO SCH (08:08)
[2019-07-14] MEDS: FAMOTIDINE 20 MG TABLET PO SCH (08:09)
== END 2019-07-14 08:55 | disposition home or self-care (01) | DRG 331 ==
LOC: ED 09:27 → MS2 16:30 → ED 16:48
PROVIDERS: ADMIT Internal Medicine Gastroenterology; ATTEND Internal Medicine Gastroenterology
PROC: 0DTH0ZZ Resection of Cecum, Open Approach (ICD-10-PCS; principal; 2019-07-11 17:00)
DX: K56.2 Volvulus (principal); K46.9 Unspecified abdominal hernia without obstruction or gangrene; K66.0 Peritoneal adhesions (postprocedural) (postinfection); K44.9 Diaphragmatic hernia without obstruction or gangrene; F32.9 Major depressive disorder, single episode, unspecified; F41.9 Anxiety disorder, unspecified; Z98.84 Bariatric surgery status; Z90.49 Acquired absence of other specified parts of digestive tract; Z90.710 Acquired absence of both cervix and uterus; Z90.721 Acquired absence of ovaries, unilateral; Z79.899 Other long term (current) drug therapy; Z72.89 Other problems related to lifestyle; Z79.1 Long term (current) use of non-steroidal anti-inflammatories (NSAID)
CPT/HCPCS: 36415; 74177; 80053; 81001; 81003; 81025; 83605; 83690; 85025; 87086; 96374; 96375; 99284

== ENCOUNTER 2019-09-29 08:00 | Outpatient (CLI) | payer BC ==
[2019-09-29 12:39] LABS: BASOPHILS % (AUTO) 0.9 %; EOSINOPHILS # (AUTO) 0.4 10^3/uL (0.0-0.7); EOSINOPHILS % (AUTO) 8.7 %; HGB - HEMOGLOBIN 12.4 g/dL (12.0-16.0); LYMPHOCYTES # (AUTO) 1.5 10^3/uL (1.5-3.5); LYMPHOCYTES % (AUTO) 33.2 %; MEAN CORPUSCULAR HEMOGLOBIN 29.1 pg (27.0-31.0); MEAN CORPUSCULAR VOLUME 91.1 fL (81.0-99.0); MEAN PLATELET VOLUME 9.7 fL (7.9-10.8); MONOCYTES # (AUTO) 0.4 10^3/uL (0.0-1.0); MONOCYTES % (AUTO) 8.9 %; NEUTROPHILS # (AUTO) 2.2 10^3/uL (1.5-6.6); NEUTROPHILS % (AUTO) 47.9 %; PLT - PLATELET COUNT 266 10^3/uL (130-450); RED BLOOD COUNT 4.26 10^6/uL (4.20-5.40); RED CELL DISTRIBUTION WIDTH 12.7 % (12.0-15.0); WHITE BLOOD COUNT 4.5 x10^3/uL (4.8-10.8)
[2019-09-29 13:03] LABS: % IRON SATURATION 20 % (20-50); ALBUMIN 4.1 g/dL (3.2-5.5); ALBUMIN/GLOBULIN RATIO 1.6 (1.0-2.2); ALKALINE PHOSPHATASE 45 IU/L (42-121); ALT ALANINE AMINOTRANSFERASE 20 IU/L (10-60); AST ASPARTATE AMINOTRANSFERASE 18 IU/L (10-42); BILIRUBIN,TOTAL 0.7 mg/dL (0.2-1.0); BUN - BLOOD UREA NITROGEN 23 mg/dL (6-20); CALCIUM 9.3 mg/dL (8.5-10.3); CARBON DIOXIDE - CO2 28 mmol/L (21-32); CHLORIDE 101 mmol/L (101-111); CK- CREATINE KINASE 50 IU/L (22-269); CREATININE 0.8 mg/dL (0.4-1.0); GFR - MDRD 75 (>89); GLUCOSE 86 mg/dL (70-100); IRON 74 ug/dL (28-170); SODIUM 138 mmol/L (135-145); TOTAL IRON BINDING CAPACITY 377 ug/dL (250-450); TOTAL PROTEIN 6.7 g/dL (6.7-8.2); TRANSFERRIN 269 mg/dL (192-382)
[2019-09-29 13:10] LABS: CRP - C-REACTIVE PROTEIN < 1.0 mg/dL (0-1.0)
[2019-09-29 13:11] LABS: FERRITIN 40.6 ng/mL (11.0-306.8)
[2019-09-29 13:19] LABS: MAGNESIUM 2.1 mg/dL (1.7-2.8)
== END 2019-09-29 23:59 | disposition home or self-care (01) ==
LOC: LAB.WCP 08:00
PROVIDERS: ATTEND Family Medicine
DX: M60.9 Myositis, unspecified (principal); Z98.84 Bariatric surgery status
CPT/HCPCS: 36415; 80053; 82550; 82607; 82728; 83540; 83735; 83921; 84466; 84630; 85025; 85651; 86140

== ENCOUNTER 2019-10-15 14:02 | Outpatient (CLI) | payer BC | END 2019-10-15 14:03 | disposition home or self-care (01) | LOC: COV 14:02 | PROVIDERS: ATTEND Family Medicine | DX: R05 Cough (principal) ==

== ENCOUNTER 2020-02-12 13:37 | Outpatient (CLI) | payer BC | END 2020-02-12 13:38 | disposition home or self-care (01) | LOC: LAB 13:37 | PROVIDERS: ATTEND Surgery | DX: Z01.812 Encounter for preprocedural laboratory examination (principal); K43.9 Ventral hernia without obstruction or gangrene; Z20.828 Contact with and (suspected) exposure to other viral communicable diseases ==

== ENCOUNTER 2020-02-15 06:55 | Day surgery (SDC) | payer BC ==
[2020-02-15] MEDS ORDERED: DEXAMETHASONE 4 MG/ML VIAL IVP ONE (06:56)
[2020-02-15] MEDS ORDERED: LIDOCAINE-MPF 2% 5 ML VIAL IM ONE (06:56)
[2020-02-15] MEDS ORDERED: fentaNYL 100 MCG/2 ML VIAL IVP ONE (06:56)
[2020-02-15] MEDS ORDERED: PROPOFOL 200 MG/20 ML VIAL IVP ONE (06:56)
[2020-02-15] MEDS ORDERED: LACTATED RINGERS 1,000 ML IV ONE (07:02)
[2020-02-15] MEDS ORDERED: BUPIVACAINE 0.5% PF 30 ML VIAL ONE (07:15)
[2020-02-15] MEDS ORDERED: LIDOCAINE 1%-EPI 1:100000 20 ML MDV ONE (07:15)
--- NOTE | 2020-02-15 07:22 | ANESTHESIA ---
Pre-Anesthesia VS, & Labs - Diagnosis incisional hernia - Procedure incisional hernia repair Vital Signs: Temp Pulse Resp BP Pulse Ox 36.1 C L 74 18 117/69 99 02/15/20 07:14 02/15/20 07:14 02/15/20 07:14 02/15/20 07:14 02/15/20 07:14 Height 5 ft 8 in Weight (kg) 89.7 kg Body Mass Index 27.8 - NPO >8 hours - Is Patient ?: No - Lab Results Lab results reviewed: Yes Home Medications and Allergies Home Medications: Ambulatory Orders Cetirizine [ZyrTEC] 10 mg PO DAILY 02/08/20 Fluoxetine HCl 60 mg PO DAILY 07/11/19 Cetirizine [ZyrTEC] 10 mg PO DAILY 02/08/20 Allergies/Adverse Reactions: Allergies Allergy/AdvReac Type Severity Reaction Status Date / Time Penicillins Allergy Rash Verified 07/11/19 09:42 Sulfa (Sulfonamide Allergy Hives Verified 02/08/20 11:42 Antibiotics) Anes History & Medical History - Anesthetic History Anesthesia Complications: reports: No previous complications Family history of Anesthesia Complications: Denies Family history of Malignant Hyperthermia: Denies - Medical History Cardiovascular: reports: High cholesterol Pulmonary: reports: None Gastrointestinal: reports: Hiatal hernia, Other Urinary: reports: None Neuro: reports: None (had a one time seizure(patient states from taking wellbutrin in past, none since)) Musculoskeletal: reports: None Endocrine/Autoimmune: reports: None Blood Disorders: reports: None Skin: reports: None Smoking Status: Never smoker - Surgical History General: Cholecystectomy, Bowel surgery, Gastric surgery, Hiatal hernia repair Gynecologic: Hysterectomy, Oophrectomy Exam General: Alert, Oriented x3, Cooperative, No acute distress Mouth Openin Fingerbreadth Neck Mobility: Normal Mallampati classification: II Respiratory: Lungs clear, Normal breath sounds, No respiratory distress, No accessory muscle use Cardiovascular: Regular rate, Normal S1, Normal S2, No murmurs Plan Anesthesia Type: General, Transverse Abdominis Plane (TAP) Block (TAP if needed) Regional Block: Per Surgeon's request for Post Op pain control (TAP if needed) Consent for Procedure(s) Verified and Reviewed: Yes Code Status: Attempt Resuscitation ASA classification: 2-Mild systemic disease Is this case an emergency?: No
[2020-02-15] MEDS ORDERED: CEFAZOLIN SODIUM IN 0.9 % NACL 2 GM/100 ML BAG IV ONE (07:26)
[2020-02-15] MEDS ORDERED: BUPIVACAINE 0.5% PF 30 ML VIAL INFIL ONE (09:27)
[2020-02-15] MEDS ORDERED: LIDOCAINE 1%-EPI 1:100000 20 ML MDV SUBQ ONE (09:27)
[2020-02-15] MEDS ORDERED: ceFAZolin 1 GM VIAL IR ONE (09:27)
[2020-02-15] MEDS ORDERED: ceFAZolin 1 GM VIAL ONE (09:42)
--- NOTE | 2020-02-15 10:33 | OPERATIVE REPORT ---
Operative Report - General Procedure Date: 02/15/20 Planned Procedure: Incisional hernia repair Pre-Op Diagnosis: Incisional hernia Procedure Performed: Incisional hernia repair Post Op Diagnosis: Supraumbilical incisional hernia - Procedure Note Primary Surgeon: Fercho Anesthesia Provider: KOMAL Rodriguez Anesthesia Technique: Local, MAC Estimated Blood Loss (mL): 10 Findings: 11 x 6 cm defect beginning at the umbilicus and extending superiorly. Hernia sac contained viable omentum Complications: None apparent - Other Other Information/Narrative: After obtaining informed consent, the patient is brought to the operating room and placed in the supine position on the op. Following successful induction of general anesthesia, appropriate padding of all bony prominences, and placement of appropriate monitors, the abdomen was prepped and draped in the standard surgical fashion. A timeout was held per scope protocol. All elements of the surgical safety checklist were followed before, during, and after the procedure. Following infiltration with local anesthetic to create a field block, an incision was created directly over the healed scar and carried through the skin and subcutaneous tissue. The hernia sac was identified beginning right at the level of the umbilicus. The defect was carefully defined and the subcutaneous fat dissected free from the edges. Lysis of adhesions was undertaken to clear the edges of the fascia internally. We now turned our attention to repair. The entire hernia measured 11 x 6 cm. I elected to close the defect primarily with permanent sutures in place an onlay patch on the anterior surface of the fascia. The defect was closed with interrupted #1 Prolene sutures. A 15 x 9 cm patch of woven Prolene mesh was placed anteriorly. It was sewn both to the defect and the surrounding fascia.The wound was checked for hemostasis. The defect was irrigated with warm saline solution containing Ancef. The subcutaneous tissue was closed with running Vicryl suture and Monocryl was applied in the skin. All sponge, needle, and instrument counts were correct at the conclusion of the case. The patient was allowed awaken anesthesia without difficulty and taken to the postanesthesia care unit in good condition.
[2020-02-15] MEDS ORDERED: ACETAMINOPHEN 325 MG TABLET PO PRN (10:34)
[2020-02-15] MEDS ORDERED: oxyCODONE 5 MG TABLET PO PRN (10:34)
[2020-02-15] MEDS ORDERED: ONDANSETRON 4 MG/2 ML VIAL IVP PRN (10:34)
[2020-02-15] MEDS ORDERED: IBUPROFEN 600 MG TABLET PO PRN (10:34)
[2020-02-15] MEDS ORDERED: KETOROLAC 15 MG/ML VIAL ONE (11:01)
[2020-02-15] MEDS ORDERED: ACETAMINOPHEN 1,000 MG/100 ML 100 ML IV ONE (11:01)
[2020-02-15] MEDS: HYDROmorphone 0.5 MG/0.5 ML SYRINGE ONE ×2 (11:07→11:12)
[2020-02-15] MEDS ORDERED: oxyCODONE 5 MG TABLET ONE (11:48)
[2020-02-15 11:49] VITALS: BP 123/72
== END 2020-02-15 06:56 | disposition home or self-care (01) ==
LOC: SDS 06:55
PROVIDERS: ATTEND Surgery
PROC: 0WUF0JZ Supplement Abdominal Wall with Synthetic Substitute, Open Approach (ICD-10-PCS; principal; 2020-02-15 08:15)
DX: K43.2 Incisional hernia without obstruction or gangrene (principal); E66.9 Obesity, unspecified; G47.33 Obstructive sleep apnea (adult) (pediatric); Z68.30 Body mass index [BMI] 30.0-30.9, adult; Z90.49 Acquired absence of other specified parts of digestive tract; Z98.84 Bariatric surgery status
CPT/HCPCS: 49560; 49568; A9270; C1781; J0131; J0690; J1170; J7120

== ENCOUNTER 2020-07-08 10:30 | Outpatient (CLI) | payer BC ==
[2020-07-08 11:04] LABS: BASOPHILS % (AUTO) 0.9 %; EOSINOPHILS # (AUTO) 0.1 10^3/uL (0.0-0.7); EOSINOPHILS % (AUTO) 1.3 %; HGB - HEMOGLOBIN 12.5 g/dL (12.0-16.0); LYMPHOCYTES # (AUTO) 1.8 10^3/uL (1.5-3.5); LYMPHOCYTES % (AUTO) 38.5 %; MEAN CORPUSCULAR HEMOGLOBIN 29.1 pg (27.0-31.0); MEAN CORPUSCULAR HGB CONC 31.9 g/dL (32.0-36.0); MEAN CORPUSCULAR VOLUME 91.4 fL (81.0-99.0); MEAN PLATELET VOLUME 9.3 fL (7.9-10.8); MONOCYTES # (AUTO) 0.3 10^3/uL (0.0-1.0); MONOCYTES % (AUTO) 6.8 %; NEUTROPHILS # (AUTO) 2.4 10^3/uL (1.5-6.6); NEUTROPHILS % (AUTO) 52.3 %; PLT - PLATELET COUNT 297 10^3/uL (130-450); RED BLOOD COUNT 4.29 10^6/uL (4.20-5.40); WHITE BLOOD COUNT 4.5 x10^3/uL (4.8-10.8)
[2020-07-08 11:15] LABS: % IRON SATURATION 30 % (20-50); ALBUMIN 4.4 g/dL (3.2-5.5); ALBUMIN/GLOBULIN RATIO 1.7 (1.0-2.2); ALKALINE PHOSPHATASE 46 IU/L (42-121); ALT ALANINE AMINOTRANSFERASE 25 IU/L (10-60); AST ASPARTATE AMINOTRANSFERASE 20 IU/L (10-42); BILIRUBIN,TOTAL 0.9 mg/dL (0.2-1.0); BUN - BLOOD UREA NITROGEN 18 mg/dL (6-20); CALCIUM 9.2 mg/dL (8.5-10.3); CARBON DIOXIDE - CO2 26 mmol/L (21-32); CHLORIDE 100 mmol/L (101-111); CHOL/HDL RATIO 3.3 (<4.4); CHOLESTEROL 259 mg/dL; CREATININE 0.7 mg/dL (0.4-1.0); GLUCOSE 100 mg/dL (70-100); HDL CHOLESTEROL 79 mg/dL; IRON 111 ug/dL (28-170); LDL CHOLESTEROL,CALCULATED 163 mg/dL; LDL/HDL RATIO 2.1 (<4.4); SODIUM 138 mmol/L (135-145); TOTAL IRON BINDING CAPACITY 371 ug/dL (250-450); TRANSFERRIN 265 mg/dL (192-382); VLDL CHOLESTEROL 17 mg/dL
[2020-07-08 11:31] LABS: FERRITIN 61.3 ng/mL (11.0-306.8)
[2020-07-08 14:39] LABS: HEMOGLOBIN A1c% 5.3 % (4.27-6.07)
== END 2020-07-08 10:31 | disposition home or self-care (01) ==
LOC: LAB 10:30
PROVIDERS: ATTEND Family Medicine
DX: E53.8 Deficiency of other specified B group vitamins (principal); Z98.84 Bariatric surgery status
CPT/HCPCS: 36415; 80053; 80061; 82607; 82728; 82746; 83036; 83540; 83721; 84443; 84466; 85025

== ENCOUNTER 2020-07-28 08:14 | Outpatient (CLI) | payer BC ==
[2020-07-28 09:15] VITALS: BP 121/78
--- NOTE | 2020-07-28 09:15 | SLEEP CARE CONSULTATION ---
Information from patient questionnaire entered by Shasha Tubbs. I have reviewed and concur with the information entered by Shasha Tubbs. This document represents the service I personally performed and the decisions made by me, Kendal Longo ARNP. History of Present Illness Service Date and Time: 07/28/2020 0814 Reason for Visit: New patient, -[facility] Chief Complaint: reports: Unrefreshed sleep, Snoring, Observed pauses in breathing, Fatigue, Other (spasms at night) Date of Onset: 6 months Usual bedtime: 11 pm Time it takes to fall asleep: 20 minutes Snores at night: Yes Observed to quit breathing while asleep: Yes Sleeps alone due to snoring: No Number of times waking at night: 2-3 Reasons for waking at night: reports: Choking, Snoring, Gasping for air, Other (when partner wakes up) Toss, Turn, or Twitch while sleeping: Yes Recalls having dreams: Yes Usually gets out of bed at: 9 am Feels refreshed in the morning: No Morning headache: No Sleepy or fatigued during the day: Yes Ever fallen asleep while driving: Yes (just drowsy driving, no accidents) Takes day naps: Yes Dreams during day naps: Yes (don't remember) Prior sleep studies: Yes Year and Where: 2009 - [facility] Additional HPI information: I had the pleasure of seeing ANGELITA PITT today regarding the possibility of her having a sleep disorder. Her current complaints are snoring, observed pauses in breathing, unrefreshed sleep, fatigue and spasms at night. She is having some worsening depression and wants to see if it is connected to her poor sleep. Her doesn't sleep much at night which wakes her up. She is frequently tired and does not wake up rested. She snores and wakes up with her throat dry almost "choking her". Another issue that has developed recently and she is very concerned about is that her body will just "spasms", like a "convulse and release" just once that she has noticed. It happens 4-5 times a week and sometimes she is awake when it happens and other times she is woken up by it. Both of her parents have been on CPAP machines for sleep apnea. Her mother has since . - Parasomnia Symptoms Ever been unable to move upon waking from sleep: Yes Walks in sleep: No Talks in sleep: Yes Ever acted out dreams in sleep: Yes Ever felt weak in the knees when startled or emotional: Yes (she has fallen to the floor from this before) Bothered by creepy, crawly, restless sensations in legs: No Problems with memory or concentration: Yes (sometimes; mostly memory problem) Subjective Initial [place] Sleepiness Scale score: 8 (in 2010) Current [place] Sleepiness Scale score: 13 Past Medical History Past Medical History: reports: Anxiety, Depression, Mood disorder (PTSD), Other (gastric sleeve, bowel resection, hernia repair). denies: Hypertension, Diabetes, Arrythmia, Anemia, GERD Social History The patient's occupation is a [email or web address]. Patient is and lives in [place]. Have you smoked in the past 12 months: No Alcohol use: Yes Alcohol amount and frequency: 1-2 drinks daily Caffeine use: Yes Caffeine amount and frequency: 3-4 cups daily Family History Family history of sleep disordered breathing: Yes (mother, father) Family Hx Sleep Apnea: Mother: Snoring, Sleep apnea - Treated, Father: Snoring, Sleep apnea - Treated Allergies and Home Medications Drug allergies reviewed: Yes (penicillin, sulfa, duloxetine) Home medication list reviewed: Yes Allergy and home medication list: Abilify 5 mg Fluoxetine 60 mg Diphenhydramine 25 mg twice a day Cetirizine 10 mg twice a day Tylenol prn Review of Systems Weight gain over past 5 years: 10 Weight loss over past 5 years: 80 Cardiovascular: denies: high blood pressure Gastrointestinal: reports: nausea, other (she does get some phlegm that she will reguritate, no food usually, no burning sensation) Urinary: reports: urgency Neurological: reports: headaches (rarely), head trauma (, fall and hit head on concrete floor with LOC) Psychiatric: reports: anxiety, depression Ear/Nose/Throat: reports: nasal congestion, dry mouth/throat, wisdom teeth removed. denies: tonsillectomy Endocrine: reports: too hot or cold, excessive thirst Musculoskeletal: reports: joint pain, neck pain, back pain Immunologic: reports: sneezing, allergies to food or environment (raw tree nuts, grass and free pollen) Physical Exam Blood Pressure: 121/78 Cuff size: wrist Heart Rate: 85 O2 Saturation: 100 Height: 5 ft 8 in Weight: 200 lb Body Mass Index: 30.4 BMI Classification: Obese Neck circumference: 14.8 (inches) Nostrils: patent to airflow Turbinates: swollen (on left) Mouth and throat: narrow oropharynx Uvula visualization: 50% Mallampati Class II Tongue: enlarged in size with teeth barron on lateral edges Tonsils: 1+ Chin and jaw: normal size and position Neck: normal w/o lymphadenopathy or thyromegaly Heart: regular rate and rhythm Lungs: clear bilaterally Impression and Plan 1. Suspected Obstructive Sleep Apnea-Hypopnea Syndrome, as suggested by a history of loud and irregular snoring, observed cessation of breath while asleep, gasping or choking in sleep, frequent awakening during the night, unrefreshed sleep, cognitive impairment, and excessive daytime sleepiness. I reviewed with the patient that a narrow oropharynx and obesity are common predisposing factors for obstructive sleep apnea-hypopnea syndrome. I recommend proceeding to polysomnography to confirm the diagnosis and to assess severity. If the patient has significant sleep disordered breathing, a manual CPAP titration study will also be performed to find the optimal treatment pressure. I informed the patient of what the sleep studies involve and after some discussion, obtained agreement to proceed. The pathophysiology of obstructive sleep apnea-hypopnea syndrome was discussed with the patient and health risks of cardiovascular and cerebrovascular disease if not treated. AASM brochure for obstructive sleep apnea-hypopnea syndrome given and reviewed. Risks of drowsy driving discussed in detail and patient advised to avoid long distance driving and to tobacco sample puller at the first sign of drowsiness. Patient agreed to plan. * Schedule polysomnography +- manual CPAP titration study and return in 1-2 weeks after the study to discuss result and initiate therapy. * Avoid long distance driving or driving when feeling sleepy. * Avoid alcohol, sedative and muscle relaxant around bedtime. * Attempt to lose weight. * Review instructions provided by trained office staff on how to prepare for the sleep study. * Return for follow-up after sleep study completed. Counseling Topics: Weight loss health impact Visit Type: In Office Provider Statement: I spent 100% of the Face to Face Visit with the patient with greater than 50% spent counseling the patient and coordination of care.
--- OUTSIDE RECORDS SUMMARY | 2020-08-03 01:00 | EXTERNAL MEDICAL SUMMARY RPT | Continuity of Care Document ---
:1965 Demographics Phone Unavailable Preferred Language Somali Marital Status Unknown Catholic Affiliation Unknown Race Unknown Ethnic Group Unknown Author Organization [facility] Address [address] [place] [address] Phone Care Team Providers Name Role Phone Scheidt Unavailable Unavailable Problems date description facility 2020-03-31 09:01 BENIGN NEOPLASM OF SIGMOID COLON [facility] 2020-03-31 09:01 OBESITY, UNSPECIFIED [facility] 2020-03-31 09:01 ANXIETY DISORDER, UNSPECIFIED [facility] 2020-03-31 09:01 SLEEP APNEA, UNSPECIFIED [facility] 2020-03-31 09:01 DIAPHRAGMATIC HERNIA WITHOUT [facility] OBSTRUCTION OR GANGRENE 2020-03-31 09:01 DVRTCLOS OF LG INT W/O PERFORATION [facility] OR ABSCESS W/O BLEEDING 2020-03-31 09:[address] [facility] 2020-03-31 09:01 ENCOUNTER FOR SCREENING FOR [facility] MALIGNANT NEOPLASM OF COLON 2020-03-31 09:01 BODY MASS INDEX (BMI) 29.0-29.9, [facility] ADULT 2020-03-31 09:01 FAMILY HISTORY OF MALIGNANT [facility] NEOPLASM OF DIGESTIVE ORGANS 2020-03-31 09:01 BARIATRIC SURGERY STATUS [facility] 2020-07-08 10:30 DEFICIENCY OF OTHER SPECIFIED B [facility] VITAMINS 2020-07-08 10:30 BARIATRIC SURGERY STATUS [facility] Allergies date description facility NO KNOWN ENVIRONMENTAL ALLERGIES [facility] Penicillins [facility] Sulfa (Sulfonamide Antibiotics) [facility] duloxetine [facility] NO KNOWN ALLERGIES [facility] Penicillins [facility] Sulfa (Sulfonamide Antibiotics) [facility] duloxetine [facility] Results Social History date description facility [phone]
== END 2020-07-28 08:15 | disposition home or self-care (01) ==
LOC: SC 08:14
PROVIDERS: ATTEND Nurse Practitioner Family
DX: G47.10 Hypersomnia, unspecified (principal); R41.89 Other symptoms and signs involving cognitive functions and awareness; G47.8 Other sleep disorders; R06.81 Apnea, not elsewhere classified; R06.83 Snoring; E66.9 Obesity, unspecified; Z68.30 Body mass index [BMI] 30.0-30.9, adult
CPT/HCPCS: 99203; 99212

== ENCOUNTER 2020-09-13 20:34 | Outpatient (CLI) | payer BC | END 2020-09-13 20:35 | disposition home or self-care (01) | LOC: SC 20:34 | PROVIDERS: ATTEND Nurse Practitioner Family | DX: G47.10 Hypersomnia, unspecified (principal); G47.8 Other sleep disorders; R06.83 Snoring | CPT/HCPCS: 95810 ==

== ENCOUNTER 2020-09-23 07:45 | Outpatient (CLI) | payer BC ==
--- NOTE | 2020-09-23 08:11 | SLEEP CARE CONSULTATION ---
Information from patient questionnaire entered by Shasha Tubbs. I have reviewed and concur with the information entered by Shasha Tubbs. This document represents the service I personally performed and the decisions made by , Kendal Longo ARNP. History of Present Illness Service Date and Time: 09/23/2020 0745 Initial [place] Sleepiness Scale score: 8 (in 2009) Current [place] Sleepiness Scale score: 13 Additional HPI information: ANGELITA PITT returns for follow up and results of the recently performed polysomnography. The patient was informed of the following findings: no significant sleep disordered breathing with an average AHI of 2.0 and juanito oxygen saturation of 91%. Her supine AHI was 14.6. I explained the pathophysiology behind obstructive sleep apnea. Patient does not have sleep apnea and was advised how weight gain could increase the risk of developing sleep apnea in the future. I strongly encouraged the patient to lose weight. Patient does not have significant sleep disordered breathing but has elevated AHI in supine position so advised positional therapy. Methods to achieve positional management therapy were discussed; such as, positioning with pillows, wearing a T-shirt with tennis balls sewn into the back, Rematee shirt, Zzomba belt and Slumberbump belt. Pamphlets provided on how to obtain the commercially available products. Patient has moderate to loud snoring. Snoring can be reduced by weight loss. Weight loss is best achieved with diet consult. Patient instructed to contact PCP for referral. Snoring can also be treated with an oral appliance from a dentist. Advised to check insurance coverage. In addition, an ENT evaluation can be do to see if other treatment is indicated. Patient counseled not drink alcohol less than 4 hours before bedtime as it can increase snoring and apnea. Patient was cautioned about risks of drowsy driving until sleepiness symptoms resolve. Sleep Study - Results Type of Sleep Study: Polysomnography Prior sleep studies: Yes Year and Where: 2009 - [facility] Polysomnography/Home Sleep Study results: IMPRESSION: The quality of the study is good. The patient had slightly reduced sleep efficiency due to several awakenings after the sleep onset.. The sleep architecture was relatively normal considering the first-night effect. Respiratory monitoring showed no significant sleep disordered breathing (AHI = 2.0) or hypoxia (juanito oxygen saturation of 91%). The few respiratory events occurred almost exclusively during supine sleep (supine AHI = 14.6; non-supine = 0.19). Snore was moderate to loud in intensity. There was no significant periodic leg movement of sleep. Cardiac rhythm was normal sinus rhythm without significant arrhythmia. No abnormal behavior (parasomnia) observed during the night. Allergies and Home Medications Drug allergies reviewed: Yes (penicillin, sulfa, duloxetine) Home medication list reviewed: Yes (no changes) Review of Systems Review of systems same as previous: Yes (no changes) Physical Exam Heart Rate: 70 O2 Saturation: 99 Height: 5 ft 8 in Weight: 206 lb Body Mass Index: 31.3 BMI Classification: Obese Impression and Plan 1. Snoring but no significant sleep disordered breathing. Patient advised that often weight loss will reduce snoring as well as apnea risk. An oral appliance can also be used for snoring. This would require a dental consultation. Patient cautioned not to use other online appliances as can cause bite issues. A list of accredited dentists in area and one local dentist who makes oral appliances available in office. Patient is advised to check if insurance will cover. An ENT consult can also be helpful to determine if any other treatment is an option. Since patients apnea is primarily in supine position, patient advised to try positional therapy and agreed with plan. He is also advised to lose weight as this will reduce snoring and apnea. * Attempt to lose weight * Avoid supine sleep, positional therapy to stay off back due to elevated supine AHI * Avoid alcohol consumption near bedtime * The patient is cautioned about driving until sleepiness is completely resolved. * Return as needed. Counseling Topics: Weight loss health impact Visit Type: In Office Time Spent with Patient (minutes): 12 Provider Statement: I spent 100% of the Face to Face Visit with the patient with greater than 50% spent counseling the patient and coordination of care.
== END 2020-09-23 07:46 | disposition home or self-care (01) ==
LOC: SC 07:45
PROVIDERS: ATTEND Nurse Practitioner Family
DX: R06.83 Snoring (principal); E66.9 Obesity, unspecified; Z68.31 Body mass index [BMI] 31.0-31.9, adult
CPT/HCPCS: 99212

== ENCOUNTER 2020-10-28 10:48 | Outpatient (CLI) | payer BC ==
[2020-10-28 11:03] LABS: BASOPHILS % (AUTO) 0.6 %; EOSINOPHILS # (AUTO) 0.1 10^3/uL (0.0-0.7); EOSINOPHILS % (AUTO) 2.2 %; HCT - HEMATOCRIT 39.9 % (37.0-47.0); LYMPHOCYTES # (AUTO) 1.9 10^3/uL (1.5-3.5); LYMPHOCYTES % (AUTO) 36.4 %; MEAN CORPUSCULAR HEMOGLOBIN 29.1 pg (27.0-31.0); MEAN CORPUSCULAR HGB CONC 32.6 g/dL (32.0-36.0); MEAN CORPUSCULAR VOLUME 89.3 fL (81.0-99.0); MEAN PLATELET VOLUME 9.1 fL (7.9-10.8); MONOCYTES # (AUTO) 0.5 10^3/uL (0.0-1.0); NEUTROPHILS # (AUTO) 2.6 10^3/uL (1.5-6.6); NEUTROPHILS % (AUTO) 51.6 %; PLT - PLATELET COUNT 288 10^3/uL (130-450); RED BLOOD COUNT 4.47 10^6/uL (4.20-5.40); RED CELL DISTRIBUTION WIDTH 12.5 % (12.0-15.0); WHITE BLOOD COUNT 5.1 x10^3/uL (4.8-10.8)
[2020-10-28 11:08] LABS: INR 1.2 (0.8-1.2); PT - PROTHROMBIN TIME 13.3 secs (9.9-12.6)
[2020-10-28 11:15] LABS: ALBUMIN 4.4 g/dL (3.2-5.5); ALBUMIN/GLOBULIN RATIO 1.6 (1.0-2.2); BILIRUBIN,TOTAL 0.7 mg/dL (0.2-1.0); CALCIUM 9.5 mg/dL (8.5-10.3); CREATININE 0.7 mg/dL (0.4-1.0); POTASSIUM 4.2 mmol/L (3.5-5.0); TOTAL PROTEIN 7.2 g/dL (6.7-8.2)
[2020-10-28 11:16] LABS: PARTIAL THROMBOPLASTIN TIME 30.5 secs (24.9-33.3)
[2020-10-29 07:47] LABS: HIV AG/AB 4TH GEN NON-REACTIVE (NON-REACTIVE)
== END 2020-10-28 10:49 | disposition home or self-care (01) ==
LOC: LAB 10:48
PROVIDERS: ATTEND Family Medicine
DX: Z11.3 Encounter for screening for infections with a predominantly sexual mode of transmission (principal); Z98.84 Bariatric surgery status
CPT/HCPCS: 36415; 80053; 85025; 85610; 85730; 87389

== ENCOUNTER 2020-11-14 16:45 | Outpatient (CLI) | payer BC | END 2020-11-14 16:46 | disposition home or self-care (01) | LOC: COV 16:45 | PROVIDERS: ATTEND Surgery | DX: Z01.812 Encounter for preprocedural laboratory examination (principal); R10.9 Unspecified abdominal pain; Z20.822 Contact with and (suspected) exposure to COVID-19 ==

== ENCOUNTER 2020-11-17 08:08 | Day surgery (SDC) | payer BC ==
[2020-11-17] MEDS ORDERED: LACTATED RINGERS 1,000 ML IV ONE ×3 (08:31→09:53)
[2020-11-17] MEDS ORDERED: LIDO GARGLE 30 ML BOTTLE ONE (09:22)
[2020-11-17] MEDS ORDERED: BENZOCAINE/TETRACAINE/BUTAMBEN 20 GM ONE (09:22)
[2020-11-17] MEDS ORDERED: fentaNYL 100 MCG/2 ML VIAL ONE (09:27)
[2020-11-17] MEDS ORDERED: MIDAZOLAM 2 MG/2 ML VIAL ONE ×2 (09:27→09:33)
[2020-11-17] MEDS ORDERED: LIDO GARGLE 30 ML BOTTLE PO ONE (09:37)
[2020-11-17] MEDS ORDERED: BENZOCAINE/TETRACAINE/BUTAMBEN 20 GM TOP ONE (09:38)
[2020-11-17 10:15] VITALS: BP 113/68
== END 2020-11-17 08:09 | disposition home or self-care (01) ==
LOC: SDS 08:08
PROVIDERS: ATTEND Surgery
PROC: 0DB48ZX Excision of Esophagogastric Junction, Via Natural or Artificial Opening Endoscopic, Diagnostic (ICD-10-PCS; principal; 2020-11-17 09:15)
DX: R10.13 Epigastric pain (principal); K21.9 Gastro-esophageal reflux disease without esophagitis; G47.33 Obstructive sleep apnea (adult) (pediatric); I10 Essential (primary) hypertension; E78.5 Hyperlipidemia, unspecified; F32.9 Major depressive disorder, single episode, unspecified; F41.0 Panic disorder [episodic paroxysmal anxiety]; F41.9 Anxiety disorder, unspecified; Z98.84 Bariatric surgery status; Z90.710 Acquired absence of both cervix and uterus; Z90.49 Acquired absence of other specified parts of digestive tract
CPT/HCPCS: 43239; A9270; J7120

== ENCOUNTER 2021-05-15 10:58 | Emergency (ER) | payer BC ==
--- NOTE | 2021-05-15 12:00 | XRAY Report ---
PROCEDURE: Chest 1 View X-Ray INDICATIONS: Chest Pain TECHNIQUE: One view of the chest was acquired. COMPARISON: None. FINDINGS: Surgical changes and devices: None. Lungs and pleura: No pleural effusions or pneumothorax. Lungs are clear. Mediastinum: Mediastinal contours appear normal. Heart size is normal. Bones and chest wall: No suspicious bony lesions. Overlying soft tissues appear unremarkable. IMPRESSION: No acute cardiopulmonary pathology. Reviewed by: Ryan Rojas MD on 05/15/2021 11:59 AM PDT Approved by: Ryan Rojas MD on 05/15/2021 11:59 AM PDT Station ID: [id number]
[2021-05-15 12:07] LABS: BASOPHILS % (AUTO) 0.6 %; EOSINOPHILS # (AUTO) 0.1 10^3/uL (0.0-0.7); EOSINOPHILS % (AUTO) 1.3 %; HCT - HEMATOCRIT 37.6 % (37.0-47.0); HGB - HEMOGLOBIN 12.1 g/dL (12.0-16.0); LYMPHOCYTES # (AUTO) 1.7 10^3/uL (1.5-3.5); LYMPHOCYTES % (AUTO) 32.7 %; MEAN CORPUSCULAR HEMOGLOBIN 28.6 pg (27.0-31.0); MEAN CORPUSCULAR HGB CONC 32.2 g/dL (32.0-36.0); MEAN CORPUSCULAR VOLUME 88.9 fL (81.0-99.0); MEAN PLATELET VOLUME 9.2 fL (7.9-10.8); MONOCYTES # (AUTO) 0.4 10^3/uL (0.0-1.0); MONOCYTES % (AUTO) 7.6 %; NEUTROPHILS # (AUTO) 3.1 10^3/uL (1.5-6.6); NEUTROPHILS % (AUTO) 57.6 %; PLT - PLATELET COUNT 243 10^3/uL (130-450); RED BLOOD COUNT 4.23 10^6/uL (4.20-5.40); RED CELL DISTRIBUTION WIDTH 13.7 % (12.0-15.0); WHITE BLOOD COUNT 5.3 x10^3/uL (4.8-10.8)
[2021-05-15 12:30] LABS: ALBUMIN/GLOBULIN RATIO 1.6 (1.0-2.2); BILIRUBIN,TOTAL 0.8 mg/dL (0.2-1.0); CALCIUM 9.2 mg/dL (8.5-10.3); CREATININE 0.6 mg/dL (0.4-1.0); POTASSIUM 4.6 mmol/L (3.5-5.0); TOTAL PROTEIN 6.5 g/dL (6.7-8.2)
--- NOTE | 2021-05-15 12:41 | ED Physician Documentation ---
PD HPI CHEST PAIN - Stated complaint Stated Complaint: CHEST PRESSURE - Chief complaint Chief Complaint: Cardiac - History obtained from History obtained from: Patient - Additional information Additional information: Patient comes emergency department chief complaint of mild to moderate chest discomfort that has been going on intermittently for about a month. She states that it is fairly random and does not seem to be tied to any particular trigger or time of day. She states that usually the episodes happen during the day, but that she has had a couple recent episodes that have awakened her at night. She denies any dyspnea on exertion. No associated symptoms such as nausea or shortness of breath. No radiation or diaphoresis. No calf pain or swelling. Patient states that she has no known history of coronary artery disease Or DVT/PE. No family history. Patient is non-smoker. She had Similar symptoms previously and were seen in the emergency department 04 at that time. She states she was told she had PVCs but nothing else was found. She states that she is not able to see her primary care physician until June 20, which is the next appointment they have available. Patient states she is had the current episode of chest tightness since yesterday and that it has just been steady. She went to sleep with a sensation and woke up with it this morning and it persisted till this moment. Nothing makes better or worse. She states that sometimes if she takes a deep breath, it feels as though she can clear the feeling a bit. Patient denies specific diagnosis of anxiety or panic attacks. She does have some stress. Review of Systems Ten Systems: 10 systems reviewed and negative Constitutional: reports: Reviewed and negative Eyes: reports: Reviewed and negative Ears: reports: Reviewed and negative Nose: reports: Reviewed and negative Throat: reports: Reviewed and negative Cardiac: reports: Chest pain / pressure Respiratory: reports: Reviewed and negative GI: reports: Reviewed and negative : reports: Reviewed and negative Skin: reports: Reviewed and negative Musculoskeletal: reports: Reviewed and negative Neurologic: reports: Reviewed and negative Psychiatric: reports: Reviewed and negative Endocrine: reports: Reviewed and negative Immunocompromised: reports: Reviewed and negative PD PAST MEDICAL HISTORY - Past Medical History Cardiovascular: High cholesterol Respiratory: None Neuro: None (had a one time seizure(patient states from taking wellbutrin in past, none since)) Endocrine/Autoimmune: None GI: Hiatal hernia, Other IT ENGINEER: None : None HEENT: Chronic vision loss Psych: Depression, Anxiety Musculoskeletal: None Derm: None - Past Surgical History Past Surgical History: No General: Cholecystectomy, Bowel surgery, Gastric surgery, Hiatal hernia repair /IT ENGINEER: Hysterectomy, Oophrectomy - Present Medications Home Medications: Ambulatory Orders Medication Instructions Recorded Confirmed Cetirizine HCl [Zyrtec] 10 mg PO DAILY 03/31/20 11/17/20 diphenhydrAMINE [Benadryl] 25 mg PO BID 03/31/20 11/17/20 FLUoxetine [PROzac] 60 mg PO DAILY 11/17/20 11/17/20 - Allergies Allergies/Adverse Reactions: Allergies Allergy/AdvReac Type Severity Reaction Status Date / Time Penicillins Allergy Rash Verified 05/15/21 11:08 Sulfa (Sulfonamide Allergy Hives Verified 05/15/21 11:08 Antibiotics) bupropion [From Wellbutrin] AdvReac Unknown Verified 05/15/21 11:08 duloxetine [From Cymbalta] AdvReac Unknown Verified 05/15/21 11:08 - Social History Does the pt smoke?: No Smoking Status: Never smoker Does the pt drink ETOH?: No Does the pt have substance abuse?: No - Immunizations Immunizations are current?: Yes - POLST Patient has POLST: No PD ED PE NORMAL - Vitals Vital signs reviewed: Yes - General General: Alert and oriented X 3, No acute distress, Well developed/nourished - HEENT HEENT: Atraumatic, PERRL, EOMI, Moist mucous membranes - Neck Neck: Supple, no meningeal sign - Cardiac Cardiac: RRR, No murmur, Strong equal pulses - Respiratory Respiratory: No respiratory distress, Clear bilaterally - Abdomen Abdomen: Soft, Non tender, Non distended - Derm Derm: Normal color, Warm and dry, No rash - Extremities Extremities: No deformity, No edema, No calf tenderness / cord - Neuro Neuro: Alert and oriented X 3, test puller 2-12 intact, Normal speech, Other (Grossly normal) - Psych Psych: Normal mood, Normal affect Results - Vitals Vitals: Vital Signs - 24 hr 05/15/21 13:05 Temperature 36.6 C Heart Rate 61 Respiratory 12 Rate Blood Pressure 124/82 H O2 Saturation 100 Oxygen O2 Source Room air - EKG (time done) 1106 Rate: Rate (enter#) (70) Rhythm: NSR [place]: Normal Intervals: Normal RI QRS: Normal Ischemia: Normal ST segments Compare to prior EKG: Old EKG unavailable Computer interpretation: Agree with computer - Labs Labs: Laboratory Tests 05/15/21 05/15/21 05/15/21 12:01 12:01 12:01 WBC 5.3 RBC 4.23 Hgb 12.1 Hct 37.6 MCV 88.9 MCH 28.6 MCHC 32.2 RDW 13.7 Plt Count 243 MPV 9.2 Neut # (Auto) 3.1 Lymph # (Auto) 1.7 [place] # (Auto) 0.4 Eos # (Auto) 0.1 Baso # (Auto) 0.0 Absolute Nucleated RBC 0.00 Nucleated RBC % 0.0 Sodium 140 Potassium 4.6 Chloride 103 Carbon Dioxide 27 Anion Gap 10.0 BUN 21 H Creatinine 0.6 Estimated GFR (MDRD) 104 Glucose 94 Calcium 9.2 Total Bilirubin 0.8 AST 19 ALT 23 Alkaline Phosphatase 40 L Troponin I High Sens < 2.3 L Total Protein 6.5 L Albumin 4.0 Globulin 2.5 Albumin/Globulin Ratio 1.6 Lipase 38 PD MEDICAL DECISION MAKING - ED course Complexity details: reviewed results, re-evaluated patient, considered jeff ryan, d/w patient ED course: Patient was worked up with labs and EKG, which were unremarkable, including normal troponin. The patient had had a steady sense of chest pressure since yesterday and this was mild in nature without escalation since. As such, I did not feel that any further troponins were indicated. I discussed with the patient that she should definitely continue her plans to follow-up with her primary care physician and at that time, she discuss having both a stress test and potentially, an event monitor. We have discussed the usual indications for return, in particular if the patient develops increasingly severe chest discomfort, shortness of breath, diaphoresis, and or nausea. Patient is agreeable to this plan. Departure - Departure Disposition: 01 Home, Self Care Clinical Impression: Chest pain Qualifiers: Chest pain type: unspecified Qualified Code(s): R07.9 - Chest pain, unspecified Condition: Stable Instructions: ED Chest Pain Atypical Unkn Cause Comments: Your labs and EKG look good. There is no evidence of a serious cause of your symptoms at this time. However, it is still very important that you follow-up with your primary doctor to discuss having a stress test done to further explore the possibility of coronary artery disease and also, to discuss wearing an event monitor to determine whether you having small runs of an abnormal rhythm during some of the times of chest pressure. If you develop severely worsening symptoms, please return to the emergency department immediately. Discharge Date/Time: 05/15/21 13:05
[2021-05-15 13:06] VITALS: BP 124/82
== END 2021-05-15 13:05 | disposition home or self-care (01) ==
LOC: ED 10:58
DX: R07.9 Chest pain, unspecified (principal)
CPT/HCPCS: 36415; 80053; 83690; 84484; 85025; 93005; 99284

== ENCOUNTER 2021-09-29 07:09 | Emergency (ER) | payer BC ==
--- NOTE | 2021-09-29 07:37 | ED Physician Documentation ---
PD HPI CHEST PAIN - Stated complaint Stated Complaint: CHEST PX/NAUSEA/VOMITING - Chief complaint Chief Complaint: Cardiac - History obtained from History obtained from: Patient - History of Present Illness Timing - onset: Today Timing - onset during: Light activity Timing - details: Abrupt onset, Still present, Waxing and waning Quality: Other (fluttering sensation in upper chest) Location: Substernal Improved by: Nothing Worsened by: Other (nothing) Associated symptoms: Nausea, Feeling faint / dizzy, Palpitations. No: Shortness of air, Diaphoresis, Vomiting, General Weakness, Cough Similar symptoms before: Diagnosis (palpitations, anxiety) Recently seen: Not recently seen - Additional information Additional information: Previously well 56-year-old female who has had a gastric sleeve placed and has a history of anxiety got up this morning to get ready for work she went into the bathroom had a bowel movement and when she got up from that she felt lightheaded and dizzy nauseous did not vomit and began to experience some fluttering in her chest. She did make her way to work and at work felt not well and has come to the emergency department for evaluation. She has had palpitations previously and she has had a monitor placed showing multiple PVCs. She does state that she feels that she may have over eaten last night and has had similar symptoms previously with overeating. She only had 2 glasses of wine last night which is normal for her and she did not overdo it with wine. She denies use of anti- inflammatories recently. She does acknowledge multiple avenues of anxiety including work related anxiety. 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 Review of Systems Constitutional: denies: Fever Eyes: denies: Decreased vision Nose: denies: Congestion Throat: denies: Sore throat Cardiac: reports: Palpitations. denies: Pedal edema, Calf pain Respiratory: denies: Dyspnea, Cough, Wheezing GI: reports: Nausea. denies: Abdominal Pain, Vomiting : denies: Dysuria, Frequency Skin: denies: Rash Musculoskeletal: denies: Neck pain, Back pain, Extremity pain Neurologic: denies: Generalized weakness, Focal weakness, Numbness PD PAST MEDICAL HISTORY - Past Medical History Cardiovascular: High cholesterol Respiratory: None Neuro: None (had a one time seizure(patient states from taking wellbutrin in past, none since)) Endocrine/Autoimmune: None GI: Hiatal hernia, Other HEAVY EQUIPMENT RENTAL ASSOCIATE: None : None HEENT: Chronic vision loss Psych: Depression, Anxiety Musculoskeletal: None Derm: None - Past Surgical History Past Surgical History: No General: Cholecystectomy, Bowel surgery, Gastric surgery, Hiatal hernia repair /HEAVY EQUIPMENT RENTAL ASSOCIATE: Hysterectomy, Oophrectomy - Present Medications Home Medications: Ambulatory Orders Medication Instructions Recorded Confirmed Cetirizine HCl [Zyrtec] 10 mg PO DAILY 03/31/20 11/17/20 diphenhydrAMINE [Benadryl] 25 mg PO BID 03/31/20 11/17/20 FLUoxetine [PROzac] 60 mg PO DAILY 11/17/20 11/17/20 LORazepam [Ativan] 1 mg PO Q6HR PRN #12 tablet 09/29/21 - Allergies Allergies/Adverse Reactions: Allergies Allergy/AdvReac Type Severity Reaction Status Date / Time Penicillins Allergy Rash Verified 09/29/21 07:23 Sulfa (Sulfonamide Allergy Hives Verified 09/29/21 07:23 Antibiotics) bupropion [From Wellbutrin] AdvReac Unknown Verified 09/29/21 07:23 duloxetine [From Cymbalta] AdvReac Unknown Verified 09/29/21 07:23 - Social History Does the pt smoke?: No Smoking Status: Never smoker Does the pt drink ETOH?: No Does the pt have substance abuse?: No - Immunizations Immunizations are current?: Yes - POLST Patient has POLST: No PD ED PE NORMAL - Vitals Vital signs reviewed: Yes (hypertensive ) - General General: Alert and oriented X 3, Well developed/nourished, Other (mild anxiety) - HEENT HEENT: Atraumatic, PERRL, EOMI - Neck Neck: Supple, no meningeal sign, No bony TTP - Cardiac Cardiac: RRR, No murmur - Respiratory Respiratory: No respiratory distress, Clear bilaterally, Other (no chest wall tenderness) - Abdomen Abdomen: Normal bowel sounds, Soft, Non tender, Non distended, No organomegaly - Back Back: No CVA TTP, No spinal TTP - Derm Derm: Normal color, Warm and dry, No rash - Extremities Extremities: No deformity, No edema - Neuro Neuro: Alert and oriented X 3, expediter 2-12 intact, No motor deficit, No sensory deficit, Normal speech Eye Opening: Spontaneous Motor: Obeys Commands Verbal: Oriented GCS Score: 15 - Psych Psych: Normal mood, Normal affect Results - Vitals Vitals: Vital Signs - 24 hr 09/29/21 09/29/21 09/29/21 07:19 07:30 08:00 Temperature 36.5 C Heart Rate 89 82 76 Respiratory 20 25 H 13 Rate Blood Pressure 122/83 H 115/86 H 130/77 O2 Saturation 100 99 98 09/29/21 09/29/21 08:30 09:00 Temperature Heart Rate 78 93 Respiratory 13 20 Rate Blood Pressure 132/76 H 128/73 O2 Saturation 98 97 Oxygen O2 Source Room air - EKG (time done) 0714 Rate: Rate (enter#) (81) Rhythm: NSR Ischemia: Normal ST segments Compare to prior EKG: Unchanged from prior EKG ([facility] 05-15-2021 no changes) Computer interpretation: Agree with computer - Labs Labs: Laboratory Tests 09/29/21 09/29/21 09/29/21 07:18 07:20 07:20 WBC 6.2 RBC 4.79 Hgb 13.9 Hct 42.4 MCV 88.5 MCH 29.0 MCHC 32.8 RDW 12.5 Plt Count 327 MPV 9.5 Neut # (Auto) 2.4 Lymph # (Auto) 3.2 [place] # (Auto) 0.4 Eos # (Auto) 0.1 Baso # (Auto) 0.0 Absolute Nucleated RBC 0.00 Nucleated RBC % 0.0 Sodium 136 Potassium 4.1 Chloride 100 L Carbon Dioxide 24 Anion Gap 12.0 BUN 27 H Creatinine 0.7 Estimated GFR (MDRD) 87 L Glucose 109 H POC Whole Bld Glucose 112 H Calcium 9.4 Total Bilirubin 0.6 AST 20 ALT 25 Alkaline Phosphatase 52 Troponin I High Sens Total Protein 7.2 Albumin 4.5 Globulin 2.7 Albumin/Globulin Ratio 1.7 Lipase 36 09/29/21 07:20 WBC RBC Hgb Hct MCV MCH MCHC RDW Plt Count MPV Neut # (Auto) Lymph # (Auto) [place] # (Auto) Eos # (Auto) Baso # (Auto) Absolute Nucleated RBC Nucleated RBC % Sodium Potassium Chloride Carbon Dioxide Anion Gap BUN Creatinine Estimated GFR (MDRD) Glucose POC Whole Bld Glucose Calcium Total Bilirubin AST ALT Alkaline Phosphatase Troponin I High Sens 2.7 Total Protein Albumin Globulin Albumin/Globulin Ratio Lipase - Rads (name of study) chest Radiology: Prelim report reviewed (Impression: No acute finding or significant change from preliminary report), EMP read indepedently, See rad report PD MEDICAL DECISION MAKING - ED course Complexity details: reviewed old records, reviewed results, re-evaluated patient, considered differential, d/w patient ED course: 56 y/o female with anxiety has had a vasovagal near syncope this morning and following that had anxiety related to the event. She was treated in the Ed with IV ativan with improvement in her symptoms. She had the feeling of palpitations and she is in sinus at a rate of 77. Departure - Departure Disposition: 01 Home, Self Care Clinical Impression: Vasovagal near syncope, Anxiety Condition: Stable Instructions: ED Panic Attack, ED Near Syncope Vasovagal Follow-Up: Ramon Barbour DO [Primary Care Provider] - Augusta Fermin MD [Provider Admit Priv/Credential] - Prescriptions: LORazepam [Ativan] 1 mg PO Q6HR PRN #12 tablet PRN Reason: Anxiety Comments: Cinthia, today it looks like you had a near fainting episode this morning related to your digestive system. It also appears this resulted in some anxiety. Your blood test electrocardiogram and chest x-ray as well as monitoring are all normal. Our expectation is that you will not have further symptoms today. If you do have anxiety again I have provided some medication for anxiety which was helpful today. Use this medication sparingly and these dozen pills should last you more than a month. This medication can be abused and if used regularly you can become dependant on it. Discharge Date/Time: 09/29/21 09:23
[2021-09-29 07:40] LABS: ALBUMIN 4.5 g/dL (3.2-5.5); ALBUMIN/GLOBULIN RATIO 1.7 (1.0-2.2); BILIRUBIN,TOTAL 0.6 mg/dL (0.2-1.0); CALCIUM 9.4 mg/dL (8.5-10.3); CREATININE 0.7 mg/dL (0.4-1.0); POTASSIUM 4.1 mmol/L (3.5-5.0); TOTAL PROTEIN 7.2 g/dL (6.7-8.2)
[2021-09-29 07:48] LABS: BASOPHILS % (AUTO) 0.5 %; EOSINOPHILS # (AUTO) 0.1 10^3/uL (0.0-0.7); EOSINOPHILS % (AUTO) 1.1 %; HCT - HEMATOCRIT 42.4 % (37.0-47.0); HGB - HEMOGLOBIN 13.9 g/dL (12.0-16.0); LYMPHOCYTES # (AUTO) 3.2 10^3/uL (1.5-3.5); LYMPHOCYTES % (AUTO) 52.7 %; MEAN CORPUSCULAR HGB CONC 32.8 g/dL (32.0-36.0); MEAN CORPUSCULAR VOLUME 88.5 fL (81.0-99.0); MEAN PLATELET VOLUME 9.5 fL (7.9-10.8); MONOCYTES # (AUTO) 0.4 10^3/uL (0.0-1.0); MONOCYTES % (AUTO) 6.5 %; NEUTROPHILS # (AUTO) 2.4 10^3/uL (1.5-6.6); PLT - PLATELET COUNT 327 10^3/uL (130-450); RED BLOOD COUNT 4.79 10^6/uL (4.20-5.40); RED CELL DISTRIBUTION WIDTH 12.5 % (12.0-15.0); WHITE BLOOD COUNT 6.2 x10^3/uL (4.8-10.8)
[2021-09-29] MEDS ORDERED: LORazepam 2 MG/ML VIAL IVP STA (07:48)
--- NOTE | 2021-09-29 08:06 | XRAY Report ---
PROCEDURE: Chest 1 View X-Ray INDICATIONS: Chest pain TECHNIQUE: One view of the chest was acquired. COMPARISON: 05/15/2021 FINDINGS: Surgical changes and devices: None. Lungs and pleura: No pleural effusions or pneumothorax. Lungs are clear. Mediastinum: Mediastinal contours appear normal. Heart size is normal. Bones and chest wall: No suspicious bony lesions. Overlying soft tissues appear unremarkable. IMPRESSION: No acute finding or significant change from preliminary report. Reviewed by: Americo Carrasquillo MD on 09/29/2021 8:05 AM PST Approved by: Americo Carrasquillo MD on 09/29/2021 8:05 AM [facility] Station ID: [id number]
[2021-09-29 09:01] VITALS: BP 128/73
== END 2021-09-29 09:23 | disposition home or self-care (01) ==
LOC: ED 07:09
DX: F41.9 Anxiety disorder, unspecified (principal); R55 Syncope and collapse
CPT/HCPCS: 36415; 71045; 80053; 83690; 84484; 85025; 93005; 96374; 99284; J2060

== ENCOUNTER 2021-12-05 08:17 | Outpatient (CLI) | payer BC ==
--- NOTE | 2021-12-06 13:40 | Mammography Report ---
BILATERAL DIGITAL SCREENING MAMMOGRAM 3D/2D: 12/05/2021 CLINICAL: Routine screening. Comparison is made to exams dated: 03/09/2019 mammogram, 02/13/2018 mammogram, 11/16/2016 mammogram, ultrasound, 11/10/2015 ultrasound, and 10/26/2015 mammogram - [facility]. The tissue of both breasts is heterogeneously dense. This may lower the sensitivity of mammography. No significant masses, calcifications, or other findings are seen in either breast. There has been no significant interval change. IMPRESSION: NEGATIVE There is no mammographic evidence of malignancy. A 1 year screening mammogram is recommended. This exam was interpreted at Station ID: [id number]. NOTE: For mammograms, a report in lay terms will be sent to the patient. Approximately 15% of breast malignancies will not be visualized mammographically. In the management of a palpable breast mass, a negative mammogram must not discourage biopsy of a clinically suspicious lesion. Electronically Signed By: Mnoy elmore/elsie:12/05/2021 15:12:30 ACR BI-RADS Category 1: Negative 3341F PARENCHYMAL PATTERN: (D) - The breast(s) demonstrate(s) heterogeneously dense fibroglandular parstefany ma. BI-RADS CATEGORY: (1) - 1 RECOMMENDATION: (ANNUAL) - Recommend routine annual screening mammography. [id number] 1 year screening LATERALITY: (B)
== END 2021-12-05 08:18 | disposition home or self-care (01) ==
LOC: DI.N 08:17
DX: Z12.31 Encounter for screening mammogram for malignant neoplasm of breast (principal)

== ENCOUNTER 2022-01-05 10:02 | Outpatient (CLI) | payer BC ==
[2022-01-05 10:15] LABS: EOSINOPHILS # (AUTO) 0.2 10^3/uL (0.0-0.7); EOSINOPHILS % (AUTO) 3.9 %; HCT - HEMATOCRIT 39.9 % (37.0-47.0); HGB - HEMOGLOBIN 12.9 g/dL (12.0-16.0); LYMPHOCYTES # (AUTO) 1.4 10^3/uL (1.5-3.5); MEAN CORPUSCULAR HEMOGLOBIN 29.2 pg (27.0-31.0); MEAN CORPUSCULAR HGB CONC 32.3 g/dL (32.0-36.0); MEAN CORPUSCULAR VOLUME 90.3 fL (81.0-99.0); MEAN PLATELET VOLUME 9.2 fL (7.9-10.8); MONOCYTES # (AUTO) 0.3 10^3/uL (0.0-1.0); MONOCYTES % (AUTO) 8.3 %; NEUTROPHILS # (AUTO) 2.2 10^3/uL (1.5-6.6); NEUTROPHILS % (AUTO) 52.3 %; PLT - PLATELET COUNT 280 10^3/uL (130-450); RED BLOOD COUNT 4.42 10^6/uL (4.20-5.40); RED CELL DISTRIBUTION WIDTH 12.9 % (12.0-15.0); WHITE BLOOD COUNT 4.1 x10^3/uL (4.8-10.8)
[2022-01-05 10:39] LABS: ALBUMIN 4.2 g/dL (3.2-5.5); ALBUMIN/GLOBULIN RATIO 1.6 (1.0-2.2); ALKALINE PHOSPHATASE 43 IU/L (42-121); ALT ALANINE AMINOTRANSFERASE 24 IU/L (10-60); AST ASPARTATE AMINOTRANSFERASE 18 IU/L (10-42); BILIRUBIN,TOTAL 0.6 mg/dL (0.2-1.0); BUN - BLOOD UREA NITROGEN 23 mg/dL (6-20); CALCIUM 9.4 mg/dL (8.5-10.3); CARBON DIOXIDE - CO2 26 mmol/L (21-32); CHLORIDE 106 mmol/L (101-111); CHOL/HDL RATIO 3.3 (<4.4); CHOLESTEROL 272 mg/dL; CREATININE 0.7 mg/dL (0.4-1.0); GFR - MDRD 87 (>89); GLUCOSE 97 mg/dL (70-100); HDL CHOLESTEROL 82 mg/dL; LDL CHOLESTEROL,CALCULATED 173 mg/dL; LDL/HDL RATIO 2.1 (<4.4); MAGNESIUM 1.9 mg/dL (1.7-2.8); POTASSIUM 4.2 mmol/L (3.5-5.0); SODIUM 142 mmol/L (135-145); TOTAL PROTEIN 6.9 g/dL (6.7-8.2); TRIGLYCERIDES 83 mg/dL; VLDL CHOLESTEROL 17 mg/dL
[2022-01-05 10:49] LABS: THYROID STIMULATING HORMONE 1.97 uIU/mL (0.34-5.60)
[2022-01-05 11:53] LABS: ESTIMATED AVERAGE GLUCOSE 111 mg/dL (70-100); HEMOGLOBIN A1c% 5.5 % (4.27-6.07)
== END 2022-01-05 10:03 | disposition home or self-care (01) ==
LOC: LAB 10:02
PROVIDERS: ATTEND Internal Medicine Cardiovascular Disease
DX: I10 Essential (primary) hypertension (principal); E78.5 Hyperlipidemia, unspecified; R00.2 Palpitations; Z13.29 Encounter for screening for other suspected endocrine disorder; Z13.1 Encounter for screening for diabetes mellitus
CPT/HCPCS: 36415; 80053; 80061; 83036; 83721; 83735; 84443; 85025

== ENCOUNTER 2022-01-08 09:05 | Outpatient (CLI) | payer BC ==
--- NOTE | 2022-01-08 12:09 | Ultrasound Report ---
PROCEDURE: Head or Neck Soft Tissue INDICATIONS: LUMP RIGHT JAWLINE TECHNIQUE: Real time scanning was performed of the neck region of interest, with image documentation . COMPARISON: None. FINDINGS: No soft tissue neck abnormality seen bilaterally. Submandibular glands have a normal sonog raphic appearance. There is mild asymmetric enlargement of the right submandibular gland relative to the left without increased blood flow in the right submandibular gland or masses in right cerebral gl and likely represents congenital asymmetry. Prominent bilateral level 1 neck lymph nodes are noted. IMPRESSION: 1. Prominent bilateral level 1 neck lymph nodes which do not meet pathologic size criteria. 2. No abnormal mass, soft tissue edema or abscess identified in the area of clinical interest. Reviewed by: Jackie Tai MD, PhD on 01/08/2022 12:08 PM PDT Approved by: Jackie Tai MD, PhD on 01/08/2022 12:08 PM PDT Station ID: [id number]
== END 2022-01-08 09:06 | disposition home or self-care (01) ==
LOC: DI 09:05
PROVIDERS: ATTEND Internal Medicine
DX: R22.1 Localized swelling, mass and lump, neck (principal)

== ENCOUNTER 2022-12-18 13:53 | Outpatient (CLI) | payer BC ==
--- NOTE | 2022-12-19 10:03 | Mammography Report ---
BILATERAL DIGITAL SCREENING MAMMOGRAM 3D/2D: 12/18/2022 CLINICAL: Routine screening. Comparison is made to exams dated: 12/05/2021 mammogram, 03/09/2019 mammogram, 02/13/2018 mammogram, mammogram, 10/26/2015 mammogram, and 11/08/2014 mammogram - [facility]. There are scattered areas of fibroglandular density in both breasts (category b / 25%-50% glandular t issue). No significant masses, calcifications, or other findings are seen in either breast. There has been no significant interval change. IMPRESSION: NEGATIVE There is no mammographic evidence of malignancy. A 1 year screening mammogram is recommended. Based on the Tyrer Cuzick model (a risk assessment model) the patients lifetime risk is 8.5% and her 10 year risk is 3.0%. According to the ACR, ACS, and NCCN guidelines, an annual breast MRI exam crescencio g with mammogram is recommended if the patients lifetime risk is 20% or greater. This exam was interpreted at Station ID: [id number]. NOTE: For mammograms, a report in lay terms will be sent to the patient. Approximately 15% of breast malignancies will not be visualized mammographically. In the management of a palpable breast mass, a negative mammogram must not discourage biopsy of a clinically suspicious lesion. Electronically Signed By: Wang pablo/elsie:12/18/2022 17:35:09 letter sent: No_Letter ACR BI-RADS Category 1: Negative 3341F PARENCHYMAL PATTERN: (A) - The breast(s) demonstrate(s) scattered fibroglandular densities. BI-RADS CATEGORY: (1) - 1 Mammogram [id number] 1 year screening LATERALITY: (B)
== END 2022-12-18 13:54 | disposition home or self-care (01) ==
LOC: DI 13:53
PROVIDERS: ATTEND Internal Medicine
DX: Z12.31 Encounter for screening mammogram for malignant neoplasm of breast (principal)

== ENCOUNTER 2023-05-29 10:42 | Emergency (ER) | payer BC ==
--- NOTE | 2023-05-29 12:27 | XRAY Report ---
PROCEDURE: Chest 1 View X-Ray INDICATIONS: L upper thoracic pain TECHNIQUE: One view of the chest was acquired. COMPARISON: Chest x-ray 09/29/2021 FINDINGS: Surgical changes and devices: None. Lungs and pleura: No pleural effusions or pneumothorax. Lungs are clear. Mediastinum: Mediastinal contours appear normal. Heart size is normal. Bones and chest wall: No suspicious bony lesions. Overlying soft tissues appear unremarkable. IMPRESSION: No acute cardiopulmonary process. Reviewed by: Candace Velasquez MD on 05/29/2023 12:25 PM PST Approved by: Candace Velasquez MD on 05/29/2023 12:25 PM [facility] Station ID: [id number]
[2023-05-29 12:32] LABS: BASOPHILS % (AUTO) 0.7 %; EOSINOPHILS # (AUTO) 0.2 10^3/uL (0.0-0.7); EOSINOPHILS % (AUTO) 3.9 %; HCT - HEMATOCRIT 37.7 % (37.0-47.0); HGB - HEMOGLOBIN 12.2 g/dL (12.0-16.0); LYMPHOCYTES # (AUTO) 1.6 10^3/uL (1.5-3.5); LYMPHOCYTES % (AUTO) 35.8 %; MEAN CORPUSCULAR HGB CONC 32.4 g/dL (32.0-36.0); MEAN CORPUSCULAR VOLUME 89.8 fL (81.0-99.0); MEAN PLATELET VOLUME 8.8 fL (7.9-10.8); MONOCYTES # (AUTO) 0.4 10^3/uL (0.0-1.0); MONOCYTES % (AUTO) 8.5 %; NEUTROPHILS # (AUTO) 2.2 10^3/uL (1.5-6.6); NEUTROPHILS % (AUTO) 50.6 %; PLT - PLATELET COUNT 252 10^3/uL (130-450); RED CELL DISTRIBUTION WIDTH 12.5 % (12.0-15.0); WHITE BLOOD COUNT 4.3 x10^3/uL (4.8-10.8)
--- NOTE | 2023-05-29 12:39 | ED Physician Documentation ---
PD HPI BACK PAIN - Stated complaint Stated Complaint: SHARP BACK PX,ARM PX - Chief complaint Chief Complaint: Back Pain - History obtained from History obtained from: Patient - Additional information Additional information: Patient is a 57-year-old female presenting for evaluation of left upper thoracic pain that has been present since yesterday. Patient states that she raised her standing desk but denies straining herself in doing so and reported having pain at that time. Pain is sharp and worse with taking a deep breath. This morning while driving here she stated that the pain migrated to her left shoulder which concerned her. She has a history of anxiety and depression but denies history of hypertension, diabetes, hyperlipidemia. She denies recent illness. No abdominal symptoms, leg swelling or pain. No recent travel or immobilization or history of PE or DVT. She did take ibuprofen for her symptoms this morning. Review of Systems Constitutional: denies: Fever Cardiac: denies: Chest pain / pressure Respiratory: denies: Dyspnea GI: denies: Abdominal Pain Musculoskeletal: reports: Back pain Neurologic: denies: Headache PD PAST MEDICAL HISTORY - Past Medical History Past Medical History: Yes Cardiovascular: High cholesterol Respiratory: None Neuro: None Endocrine/Autoimmune: None GI: Hiatal hernia, Other MASTER PRINTER: None : None HEENT: Chronic vision loss Psych: Depression, Anxiety Musculoskeletal: None Derm: None - Past Surgical History Past Surgical History: No General: Cholecystectomy, Bowel surgery, Gastric surgery, Hiatal hernia repair /MASTER PRINTER: Hysterectomy, Oophrectomy - Present Medications Home Medications: Ambulatory Orders Medication Instructions Recorded Confirmed Cetirizine HCl [Zyrtec] 10 mg PO DAILY 03/31/20 05/29/23 diphenhydrAMINE [Benadryl] 25 mg PO BID 03/31/20 05/29/23 FLUoxetine [PROzac] 60 mg PO DAILY 11/17/20 05/29/23 - Allergies Allergies/Adverse Reactions: Allergies Allergy/AdvReac Type Severity Reaction Status Date / Time Penicillins Allergy Rash Verified 05/29/23 10:53 Sulfa (Sulfonamide Allergy Hives Verified 05/29/23 10:53 Antibiotics) bupropion [From Wellbutrin] AdvReac Unknown Verified 05/29/23 10:53 duloxetine [From Cymbalta] AdvReac Unknown Verified 05/29/23 10:53 - Social History Does the pt smoke?: No Smoking Status: Never smoker Does the pt drink ETOH?: Yes ETOH Use: Wine Does the pt have substance abuse?: No - Immunizations Immunizations are current?: Yes - POLST Patient has POLST: No PD ED PE NORMAL - General General: Alert and oriented X 3, No acute distress, Well developed/nourished - HEENT HEENT: Atraumatic, Moist mucous membranes, Pharynx benign - Neck Neck: Supple, no meningeal sign - Cardiac Cardiac: RRR, Strong equal pulses - Respiratory Respiratory: No respiratory distress, Clear bilaterally - Abdomen Abdomen: Soft, Non tender, Non distended - Back Back: No CVA TTP, No spinal TTP - Derm Derm: Warm and dry - Neuro Neuro: Normal speech PD ED PE EXPANDED - Back Back visual: 1 - tenderness (area of pain/not particularly tender) Results - Vitals Vitals: Vital Signs - 24 hr 05/29/23 05/29/23 10:53 13:35 Temperature 37.1 C 36.1 C L Heart Rate 74 64 Respiratory 16 16 Rate Blood Pressure 120/60 138/77 H O2 Saturation 98 100 Oxygen O2 Source Room air - EKG (time done) 1102 EKG releavant findings:: EKG personally interpreted by author of this note. Relevant findings are: Rate 77, normal sinus rhythm, no STEMI, no ST depressions - Labs Labs: Laboratory Tests 05/29/23 05/29/23 05/29/23 12:28 12:28 12:28 WBC 4.3 L RBC 4.20 Hgb 12.2 Hct 37.7 MCV 89.8 MCH 29.0 MCHC 32.4 RDW 12.5 Plt Count 252 MPV 8.8 Neut # (Auto) 2.2 Lymph # (Auto) 1.6 [place] # (Auto) 0.4 Eos # (Auto) 0.2 Baso # (Auto) 0.0 Absolute Nucleated RBC 0.00 Nucleated RBC % 0.0 D-Dimer 219.6 Sodium 139 Potassium 4.3 Chloride 104 Carbon Dioxide 30 Anion Gap 5.0 L BUN 17 Creatinine 0.7 Estimated GFR (MDRD) 86 L Glucose 91 Calcium 9.3 Troponin I High Sens 2.3 PD Medical Decision Making - ED course Complexity details: reviewed results, re-evaluated patient, d/w patient ED course: Patient presenting for evaluation of upper thoracic pain on the left since yesterday that is worse with taking a deep breath. I am unable to reproduce the pain on exam. No trauma. EKG was obtained which I reviewed without signs of a cute ischemia. She has no risk factors for ACS. CBC, chemistry, troponin and D-dimer obtained and reviewed without significant findings. Therefore I feel that her symptoms are not related to an TN or PE. No signs of consolidation or mass or fluid on her chest x-ray. Patient counseled on recommendations for supportive care as well as close follow-up if symptoms or not improving. She is also advised on strict return precautions for any worsening symptoms. Departure - Departure Disposition: 01 Home, Self Care Clinical Impression: Upper back pain on left side Condition: Stable Instructions: ED Neck Back Pain General Comments: The exact cause for your back pain at this time is unclear but your lab testing is reassuring I do not see signs of a heart attack or blood clot in your lungs. Your chest x-ray is also unremarkable. Please continue with lidocaine patches and anti-inflammatories. Consider close follow-up with your primary care provider if your symptoms or not improving. Return to the emergency department if you develop any new or worsening symptoms such as shortness of air or chest pain.
[2023-05-29 12:55] LABS: CALCIUM 9.3 mg/dL (8.5-10.3); CREATININE 0.7 mg/dL (0.6-1.3); POTASSIUM 4.3 mmol/L (3.5-4.5)
[2023-05-29 12:56] LABS: TROPONIN I HIGH SENSITIVITY 2.3 ng/L (2.3-14.8)
[2023-05-29] MEDS ORDERED: LIDOCAINE PATCH 5% TOP STA (13:12)
[2023-05-29 13:42] VITALS: BP 138/77; O2SAT 100
== END 2023-05-29 13:40 | disposition home or self-care (01) ==
LOC: ED 10:42
DX: M54.6 Pain in thoracic spine (principal); E78.00 Pure hypercholesterolemia, unspecified; Z79.899 Other long term (current) drug therapy
CPT/HCPCS: 36415; 71045; 80048; 84484; 85025; 85379; 93005; 99283; 99284; A9270

== ENCOUNTER 2023-10-04 14:25 | Outpatient (CLI) | payer BC ==
--- NOTE | 2023-10-04 15:42 | XRAY Report ---
PROCEDURE: Ankle 3+V LT INDICATIONS: ANKLE PAIN TECHNIQUE: 3 views of the ankle were acquired. COMPARISON: None. FINDINGS: Bones: No fractures or dislocations. Ankle mortise is normally aligned. No suspicious bony lesions . Mild plantar calcaneal enthesophyte. Soft tissues: No tibiotalar joint effusion. Achilles tendon appears normal. IMPRESSION: No acute bony abnormality. Reviewed by: Cristhian Wilkins MD on 10/04/2023 3:41 PM PDT Approved by: Cristhian Wilkins MD on 10/04/2023 3:41 PM PDT Station ID: [id number]
--- NOTE | 2023-10-04 15:43 | XRAY Report ---
PROCEDURE: Hip w/Pelvis 2-3V LT INDICATIONS: LEFT HIP PAIN TECHNIQUE: 2 views of the hip were acquired. COMPARISON: None. FINDINGS: Bones: No fractures or dislocations. No significant degenerative changes of the hip. Mild degenerati ve changes of the visualized lower lumbar spine and pubic symphysis. No suspicious bony lesions. Soft tissues: No suspicious soft tissue calcifications or masses. IMPRESSION: No acute bony abnormality. Reviewed by: Cristhian Wilkins MD on 10/04/2023 3:42 PM PDT Approved by: Cristhian Wilkins MD on 10/04/2023 3:42 PM PDT Station ID: [id number]
== END 2023-10-04 14:26 | disposition home or self-care (01) ==
LOC: DI 14:25
PROVIDERS: ATTEND Internal Medicine
DX: M25.572 Pain in left ankle and joints of left foot (principal); M25.552 Pain in left hip

== ENCOUNTER 2024-02-06 08:00 | Outpatient (CLI) | payer BC | END 2024-02-06 23:59 | disposition home or self-care (01) | LOC: LAB 08:00 | PROVIDERS: ATTEND Nurse Practitioner Family | DX: J02.9 Acute pharyngitis, unspecified (principal) | CPT/HCPCS: 87070 ==